=== PATIENT | male | born 1965 | race Caucasian/White ===

== ENCOUNTER 2016-12-08 00:52 | Inpatient (IN) | payer MEDICARE, MEDICAID ==
[~2016-12-08] VITALS: Ht 167.6 cm; Wt 79.3 kg
--- NOTE | ~2016-12-08 | WND ---
ADMIT: 12/08/2016 RM/LOC: 419 [facility] MR#: [id number] [address] [address] FARHEEN CHILDRESS [address] [place] [address] W[facility] Care Clinic SEX: M AGE: 51 : 1965 DATE OF VISIT: 12/17/2016 CHIEF COMPLAINT: Wound to right buttock. HISTORY OF PRESENT ILLNESS: Farheen is a 51-year-old, mentally-handicapped male patient, who is admitted through the emergency room on December 08, 2016 with acute abdominal pain. He was later diagnosed with acute pancreatitis and started on IV antibiotics. He has been running fevers while in the hospital. His caregiver is currently in the room, giving him a shower and after I evaluated the ulcer, she said, "see, told them it was worse than a stage I pressure ulcer." PAST MEDICAL HISTORY: 1. Chronic constipation. 2. Bipolar disorder. 3. Hypertriglyceridemia. 4. Mental disability. 5. Hyperlipidemia. 6. Type 2 diabetes. PAST SURGICAL HISTORY: Cholecystectomy in 2013. SOCIAL HISTORY: The patient lives with a make up worker. He is a client of [employer]. Denies tobacco or alcohol use. FAMILY HISTORY: Noncontributory. ALLERGIES: No known medication allergies. MEDICATIONS: 1. BuSpar. 2. Demadex. 3. Klor-Con. 4. MiraLAX. 5. Pepcid. 6. Peridex. 7. Reglan. 8. Senokot. 9. TriCor. 10.Wellbutrin. 11.Zocor. 12.DuoNeb. 13.Levemir. 14.NovoLog. 15.Lotrimin. 16.Merrem. 17.Nitroglycerin drip. 18.Clinimix. ADMIT: 12/08/2016 RM/LOC: 419 [facility] MR#: [id number] [address] [address] FARHEEN CHILDRESS[address] [place] [address] Wound Care Clinic SEX: M AGE: 51 : 1965 REVIEW OF SYSTEM: He currently denies pain, fever, or chills. He denies nausea or vomiting. PHYSICAL EXAMINATION: VITAL SIGNS: Temperature 98.9 degrees Fahrenheit, pulse 112, respirations 22, blood pressure 127/75, pulse ox 92% on room air. GENERAL: Assessment reveals an alert and oriented 51-year-old male, in no acute distress. EXTREMITIES: Assessment of his right ischial tuberosity reveals a dark purple area that is not quite quarter size that is indurated and tender to touch. There is no periwound erythema noted. No drainage is noted. ASSESSMENT: Deep tissue injury to right ischium. PLAN: We are going to encourage Farheen to lay in bed for 1 hour after each meal. He will have a low air loss mattress overlay on his bed. Also, I would like him to have an air cushion in his chair. They will apply skin prep to the area daily. Sonia Mo APRN/ letitia JOB #: [id number] CC: Ej Mccauley, Attending Physician Ej Mccauley, Family Physician
--- NOTE | ~2016-12-08 | WND ---
ADMIT: 12/08/2016 RM/LOC: 419 [facility] MR#: [id number] [address] [address] FARHEEN CHILDRESS [address] [place] [address] Wound Care Clinic SEX: M AGE: 51 : 1965 DATE OF VISIT: 12/19/2016 TIME: 15 minutes. SUBJECTIVE: Tyler is being seen today for followup on my evaluation on January 14, 2017 at which time, he was noted to have what appeared to be a deep tissue injury over his right buttock. Tyler is currently in room 419. He is sitting in his recliner. Tyler is a mentally-handicapped male who is being treated for acute pancreatitis. OBJECTIVE: Assessment of the right side of his buttock reveals an open area that is approximately 1 cm circumferential. Wound bed is pink. It is tender to palpation. It is actually along the medial gluteal cleft. He also has some moisture-associated dermatitis along the left gluteal cleft. He is tender to palpation. He does have an air cushion in his recliner and Sensi- Care over and around both of these open areas. ASSESSMENT: Stage II pressure ulcers to right and left side of gluteal cleft with moisture-associated dermatitis. PLAN: Again I talked to Tyler about being careful that he is not reclining in his recliner and that if he does only for short periods of time. Also if he is lying in bed, he needs to be repositioned to the right or left side. The pillow is needed to be above his waist line. They can discontinue the skin prep to his buttocks and continue with the Sensi-Care applied 4 times daily and as needed. WOCN will continue to follow. Sonia Mo APRN/ letitia JOB #: [id number] CC: Ej Mccauley MD, Attending Physician Ej Mccauley MD, Family Physician
--- NOTE | ~2016-12-08 | CO ---
ADMIT: 12/08/2016 RM/LOC: 419 [facility] MR#: [id number] [address] [address] FARHEEN CHILDRESS [address] [place] [address] Consultation Report SEX: M AGE: 51 : 1965 DATE OF CONSULTATION: 12/19/2016 ATTENDING PHYSICIAN: Ej Mccauley CONSULTING PHYSICIAN: Jamie Calix MD ADDENDUM: You can see full dictated consult. This is addendum to Fredrick Gay's. Farheen is a 51-year-old male with overall mental disabilities, who I believe stays at a home now with caregiver kind of full-time. He was admitted with acute pancreatitis, significant elevation of his enzymes, those have been improving. He has already had his gallbladder out. Started complaining of some more epigastric abdominal pain even though his enzymes were all getting better, and heme positive stool with drop in his hemoglobin, and secondary to that, we were asked to see him for possible EGD. He has already eaten today, so the plan would be to perform this tomorrow. Nothing else acute going on with his abdomen from that standpoint. Mild diffuse tenderness, but no acute peritoneal signs. The plan is to proceed with an EGD tomorrow, which I have discussed with him, which we had discussed with rehab tech what it entails, the risks, benefits, possible complications, and alternatives. Jamie Calix MD/ kristenl JOB #: [id number] CC: Ej Mccauley, Attending Physician Ej Mccauley, Family Physician
--- NOTE | ~2016-12-08 | ECH ---
Transthoracic Echocardiography Report (TTE) Demographics Patient Name FARHEEN CHILDRESS Date of Study 12/13/2016 Patient Number [id number] Visit Number [id number] Date of 1965 Room Number 419 Accession Number [id number] Gender Male Age 51 year(s) Referring Parisa Pagan MD [employer] Supervisor Alba Yoder [facility] Physician Physician Interpreting Evie [employer] Production Control Specialist Physician Supervising Ordering Physician Parisa Pagan MD, MD/MLP Nurse Stress Human Resources Department Supervisor Conclusions Contractility Score Summary Normal Left Ventricular contractility was noted. Summary Technically adequate exam. The estimated left ventricular ejection fraction is 65-70%. Hyperdynamic LV function. Mild concentric left ventricular hypertrophy. Diastolic assessment reveals Grade I diastolic dysfunction. Trivial pericardial effusion. Pleural effusion present. No significant valvular abnormalities. Procedure Type of Study TTE procedure Procedure Date Date: 12/13/2016 Start: 02:29 PM Technical Quality: Adequate visualization Indications:Diabetes and Hypertension. Additional Indications:Pericardial effusion on CT scan Appropriate Use Criteria: 8 Height: 66 inches Weight: 202 pounds BSA: 2.01 m Rhythm: Sinus tachycardia HR: 123 bpm BP: 129/79 mmHg M-Mode/2D Measurements LV Diastolic Dimension: 3.23 cm LV Systolic Dimension: 2.41 cm LV Septum Diastolic: 1.2 cm LV PW Diastolic: 1.16 cm AO Root Dimension: 2.67 cm Cardiac Output: 8.54 l/min LA Dimension: 3.45 cm Cardiac Index: 4.25 l/min*m RV Diastolic Dimension: 3.65 cm LA volume index: 25 ml/m LVOT: 1.86 cm LVOT VTI: 25.57 cm RV Base: 3.2 cm LV Stroke volume: 69.44 ml RV Mid: 2 cm LV Stroke volume index: 34.55 ml/m TAPSE: 2.8 cm TDI-S': 18 cm/s Doppler Measurements AV Peak Velocity: 1.7 m/s MV Peak E-Wave: 0.8 m/s AV Peak Gradient: 11.56 mmHg MV Peak A-Wave: 0.97 m/s AV Mean Gradient: 6.41 mmHg MV E/A Ratio: 0.82 LVOT Peak Velocity: 1.73 m/s MV P1/2t: 35 msec AV Area (Continuity):2.82 cm MV Deceleration Time: 120.8 msec TR Velocity:2.73 m/s MV Area (PHT): 6.28 cm TR Gradient:29.72 mmHg PV Peak Velocity: 1.52 m/s Estimated RAP:5 mmHg PV Peak Gradient: 9.29 mmHg Estimated RVSP: 35 mmHg Estimated PASP: 34.72 mmHg E' Septal Velocity: 0.1 m/s A' Septal Velocity: 0.13 m/s E' Lateral Velocity: 0.14 m/s A' Lateral Velocity: 0.16 m/s RA Area: 15.82 cm Findings Left Ventricle The left ventricle is normal in size . Mild concentric left ventricular hypertrophy. Diastolic assessment reveals Grade I diastolic dysfunction. Right Ventricle Normal right ventricle structure and function. Left Atrium Normal left atrial size. Right Atrium Normal right atrial size. Mitral Valve Normal mitral valve structure and function. Trivial mitral regurgitation by color Doppler. Aortic Valve Normal aortic valve structure and function. Tricuspid Valve Normal tricuspid valve structure and function. Trivial tricuspid regurgitation by color Doppler. Normal pulmonary pressures. Pulmonic Valve The pulmonic valve is not well visualized. Trivial pulmonic valve regurgitation by color Doppler. Pericardial Effusion No evidence of pericardial effusion. Miscellaneous Visualized portions of the aortic root and ascending aorta appear normal in size. Pleural Effusion Pleural effusion present. Contractility Score LV regional wall motion:(0-Non visualized 1-Normal 2-Hypokinesis 3-Akinesis 4-Dyskinesis 5-Aneurysm) Signature
[~2016-12-08 00:52] MED LIST: AUGMENTIN XR1 GM PO; BUSPAR DPS10 MG JT; COMBIVENT RESPIM4 GM IH; DEPAKOTE500 MG PO; DULCOLAX-DPS10 MG PR; DUONEB DPS3 ML IH; FANAPT12 MG JT; LOTRIMIN DPS15 GM TP; MAALOX DPS30 ML PO; MIRALAX17 GM PO; PERIDEX15 ML PO; PRILOSEC DPS20 MG PO; SENOKOT DPS8.6 MG PO; SURFAK DPS240 MG PO; TEMOVATE O.05%15 GM TP; TRICOR145 MG PO; TYLENOL DP650 MG/20. PO; TYLENOL DPS325 MG PO; WELLBUTRIN100 MG JT; ZESTRIL DPS20 MG PO; ZOCOR DPS40 MG PO
--- NOTE | 2016-12-08 04:49 | ER ---
ADMIT: 12/08/2016 RM/LOC: 419 [facility] MR#: [id number] [address] [address] FARHEEN CHILDRESS [address] [place] [address] Emergency Room Report SEX: M AGE: 51 : 1965 DATE: 12/08/2016 CHIEF COMPLAINT: Abdominal pain. HISTORY OF PRESENT ILLNESS: The patient is a 51-year-old [employer] client, complaining of 6-hour history of diffuse abdominal pain with vomiting. No fevers, chills, or diarrhea. Symptoms began shortly after having ice cream tonight. Denies prior history of difficulty with ice cream. Patient is status post cholecystectomy. PAST MEDICAL HISTORY: ALLERGIES: NONE. MEDICATIONS: Please see nurse's MAR. There are no anticoagulants on the MAR. ILLNESSES: Type 2 diabetes, diet controlled; hypertension; hyperlipidemia; bipolar disorder; constipation. OPERATIONS: Cholecystectomy. SOCIAL HISTORY: [employer] client. Nonsmoker, nondrinker, no illicit drugs. FAMILY HISTORY: Negative per chart review. REVIEW OF SYSTEMS: A 12-point review of systems negative for all other systems, illnesses, or operations except as outlined above. PHYSICAL EXAMINATION: VITAL SIGNS: Temp 96.6, pulse 94, respirations 20, BP 146/90, SaO2 of 97% on room air. GENERAL: Severe distress, nontoxic, non-diaphoretic without jaundice or icterus. HEENT: Normocephalic. No evidence of epistaxis, rhinorrhea, or otorrhea. NECK: Supple without lymphadenopathy or thyromegaly. CHEST: Clear. Breath sounds equal without rales, rhonchi, or wheeze. HEART: Regular rate and rhythm without murmur, gallop, or edema. ABDOMEN: Obese, diffusely tender without mass or megaly. Bowel sounds absent. BACK: No CVA tenderness. EXTREMITIES: No evidence of Homans sign, synovitis, or dermatitis. NEURO: EOMI. PERRLA. No evidence of drift, dysarthria, or ataxia. Gait not evaluated. MENTAL STATUS: Obvious static encephalopathy with cognitive delay, cooperative with exam. MEDICAL DECISION MAKING: The patient has an acute abdomen. CT abdomen shows fluid around the pancreas. No evidence of dilated bile ducts. Evidence of cholecystectomy. WBC 11.1, hemoglobin 13.8, lactic 3.0, potassium 3.6, glucose 206, CRP less than 0.29. Valproic acid 1358, lipase 43,398. INR ADMIT: 12/08/2016 RM/LOC: 419 [facility] MR#: [id number] [address] [address] FARHEEN CHILDRESS [address] [place] [address] Emergency Room Report SEX: M AGE: 51 : 1965 2.24, ALT 105, AST 178. Normal alkaline phosphatase and bilirubin. Serum ammonia level pending. EKG pending. Patient was given IV fluids, Zofran, Toradol, Dilaudid with marked improvement of pain. Discussed case with Dr. Euceda, who agreed and gave orders to nursing staff. Notified Poison Control, who instructed EKG and serum ammonia. The patient will have an INR repeated later tonight. Due to the patient's presentation, findings, and intervention, 30 minutes of critical care is warranted. DIAGNOSES: 1. Acute pancreatitis. 2. Elevated INR. 3. Lactic acidosis. 4. Valproic acid toxicity. RECOMMENDATION: Admit PCU for Dr. Mccauley. ADMISSION/DISCHARGE CONDITION: Fair. The patient is a full code. Jamey Bledsoe MD/ letitia JOB #: [id number] CC: Ej Mccauley MD, Attending Physician Ej Mccauley MD, Family Physician Ej Mccauley MD
--- NOTE | 2016-12-19 15:02 | CO ---
ADMIT: 12/08/2016 RM/LOC: 419 [facility] MR#: [id number] [address] [address] FARHEEN CHILDRESS [address] [place] [address] Consultation SEX: M AGE: 51 : 1965 DATE OF CONSULTATION: 12/15/2016 ATTENDING PHYSICIAN: Ej Mccauley CONSULTING PHYSICIAN: Carlos Case MD REASON FOR CONSULT: Pericardial fluid and possible pericarditis. HISTORY OF PRESENT ILLNESS: Farheen is a 51-year-old with mental disability and lives with a program/music director for full-time. He was previously at [facility]. He does not have a prior cardiac history. His medical history is positive for dyslipidemia, chronic constipation, bipolar disorder, and diabetes. He was admitted on December 08 with diffuse abdominal pain, nausea, and vomiting. This occurred after he had eaten. He was found to have acute pancreatitis with a lipase greater than 40,000. There was associated liver enzyme elevation, and his INR was supratherapeutic, not on any anticoagulation. There was question of increased Depakote level and whether this could have been the cause of his pancreatitis. Throughout this hospitalization, he has slowly been improving. He has complained of some heartburn but no anginal symptoms and no positional chest pain. A CAT scan of the chest was performed and showed a small amount of pericardial fluid. We did an echo which shows a trivial pericardial effusion but overall preserved ejection fraction. His LV was hyperdynamic and no significant valvular abnormalities. He also has associated pleural effusions. He continues to be febrile. PAST MEDICAL HISTORY: ALLERGIES: THERE ARE NO KNOWN MEDICAL ALLERGIES. MEDICATIONS: His home medications include: 1. Simvastatin 40 at bedtime. 2. Senna b.i.d. 3. Potassium 20 mEq daily. 4. Polyethylene glycol t.i.d. 5. Omeprazole 20 daily. 6. Lasix 40 daily. 7. Fenofibrate 145 daily. 8. Fanapt 10 mg daily. 9. Divalproex DR 500 b.i.d. 10.BuSpar 10 q.i.d. 11.Chlorhexidine swish and spit. 12.Bupropion 150 b.i.d. He is currently on low-dose Demadex as well in the hospital. ILLNESSES: Include his bipolar disorder, mental disability. He is independent, but he lives in a home with a primary caregiver. He is type 2 ADMIT: 12/08/2016 RM/LOC: 419 [facility] MR#: [id number] [address] [address] FARHEEN CHILDRESS [address] [place] [address] Consultation SEX: M AGE: 51 : 1965 diabetic. He has severe dyslipidemia with primary hypertriglyceridemia. He has chronic constipation. He is status post cholecystectomy a couple of years ago. SOCIAL HISTORY: He is a nonsmoker. He used to be with [facility], but he is currently with an independent caregiver. No smoking or alcohol abuse. FAMILY HISTORY: Unobtainable. REVIEW OF SYSTEMS: Unobtainable. He does not answer specific questions. PHYSICAL EXAMINATION: VITAL SIGNS: His blood pressure is 150/96, his pulse is 110, respirations 20. He remains afebrile at 101.4. SKIN: Pale, pink, warm and dry. EYES: Sclerae clear. No xanthelasmas. ENT: Marked carotid upstroke but no specific JVD. Oral mucosa is pink and moist. CHEST: Diminished in the bases bilaterally. Lungs are clear to auscultation. HEART: Mildly tachycardic. No rubs are noted. No murmurs, rubs or gallops. ABDOMEN: Protuberant and obese. It is not tense, soft and mildly tender to palpation. Bowel sounds are active. MUSCULOSKELETAL: Gait is normal. EXTREMITIES: Mild edema. Hair loss over the lower extremities. PSYCH: He does give an eye contact. He will answer very simple questions but offers no other information. He is in no acute distress. IMAGING DATA: His echo showed hyperdynamic function with trivial pericardial effusion. LABORATORY DATA: Potassium 4.2, creatinine 0.7, triglycerides are 110 with a total cholesterol of 110. His AST on admission was 178 but now is down to 52. Amylase on admission was over 700. It is down to 83. Troponins have been negative. ProBNP is normal. His INR was elevated but has now normalized down to 1.38. Hemoglobin is 9.6. EKG shows sinus rhythm with no Q-waves, and there is no significant ST elevation. IMPRESSION: 1. Trivial pericardial effusion. 2. Acute pancreatitis. 3. Type 2 diabetes. 4. Mental disability. 5. History of dyslipidemia. ADMIT: 12/08/2016 RM/LOC: 419 [facility] MR#: [id number] [id number] [place], [place] [address] [place] [address] Consultation SEX: M AGE: 51 : 1965 6. Bipolar disorder. RECOMMENDATIONS: I reviewed his echo. He has hyperdynamic LV function which is probably part of his underlying illness and compensatory. He did have just a trivial amount of fluid but no tamponade-type physiology, and he is not hypotensive. His EKG does not show evidence of acute pericarditis. I think the small amount of pericardial fluid is due to the underlying inflammatory process and I would not give him a diagnosis of pericarditis or need to treat pericarditis specifically. The ultimate treatment will be the treatment of his underlying illness. Thank you for this consultation. Carlos Case MD/ letitia JOB #: [id number] CC: Ej Mccauley, Attending Physician Ej Mccauley, Family Physician
--- NOTE | 2016-12-23 10:31 | CO ---
ADMIT: 12/08/2016 RM/LOC: 419 [facility] MR#: [id number] [address] [address] FARHEEN CHILDRESS [address] [place] [address] Consultation SEX: M AGE: 51 : 1965 DATE OF CONSULTATION: 12/16/2016 ATTENDING PHYSICIAN: Ej Mccauley CONSULTING PHYSICIAN: Bing Rivera MD REASON FOR CONSULT: Acute pancreatitis and fevers. Thank you, Dr. Vitale, for the consult and involving in this patient's care. HISTORY OF PRESENT ILLNESS: Mr. Childress is a 51-year-old man with history of mental disability, who lives at [facility], was brought in by his banking assistant with complain of increased abdominal pain and nausea and vomiting. Apparently, the patient ate some ice cream and then complained of severe abdominal pain. In the ER, he was noted to have elevated lipase of 5405, and amylase of 711, and increased AST of 50. His INR was elevated at 1.38, and CT scan showed peripancreatic fluid and inflammatory change. He was also noted to have elevated Depakote level, but the repeat one from the same day was less than 3, so likely a lab error. His admission lipase was 46,398. He was started on levofloxacin and Zosyn, and he has been running fevers almost everyday. At present, he complains of epigastric pain and has been eating and tolerating diet well. He also has history of chronic constipation and his last bowel movement was yesterday. PAST MEDICAL HISTORY: 1. Bipolar disorder. 2. Mental disability. 3. Hyperlipidemia. 4. Chronic constipation. PAST SURGICAL HISTORY: Cholecystectomy in 2013. SOCIAL HISTORY: The patient lives at home with a banking assistant in [facility]. Denies any smoking, alcohol, or recreational drug use. FAMILY HISTORY: Significant for diabetes mellitus in his mother. ALLERGIES: NO KNOWN DRUG ALLERGIES. CURRENT MEDICATIONS: 1. BuSpar. 2. Demadex. 3. Klor-Con. 4. MiraLax. 5. Pepcid. 6. Peridex. 7. Reglan. 8. Fanapt. 9. Senokot. ADMIT: 12/08/2016 RM/LOC: 419 [facility] MR#: [id number] [address] [address] [place] [address] Consultation SEX: M AGE: 51 : 1965 10.TriCor. 11.Zocor. 12.Insulin sliding scale. 13.Lotrimin. 14.Levofloxacin 500 mg once daily. 15.Clinimix. 16.Solu-Medrol 80 mg twice daily. 17.Zosyn 3.375 g every 8 hours. REVIEW OF SYSTEMS: A 10-point review of systems negative except as mentioned in HPI. PHYSICAL EXAMINATION: VITAL SIGNS: Current temperature is 98.2, T-max was 101.4, heart rate 108, respirations 24, blood pressure 168/92, and 98% on room air. GENERAL: No acute distress. HEENT: Head is normocephalic and atraumatic. Extraocular movements intact. CHEST: Clear to auscultation bilaterally. Decreased breath sounds at bases. CARDIOVASCULAR: S1 and S2 heard. Regular rate and rhythm. ABDOMEN: Soft, obese, mildly distended, and nontender. EXTREMITIES: No peripheral edema. PSYCH: Flat affect. LABORATORY DATA: Reviewed. His repeat CT scan from today showed increasing peripancreatic inflammatory change and adjacent abdominal ascites and increased bilateral pleural effusions. CBC yesterday showed white count of 12.6, hemoglobin 9.6, ESR of 108. BMP showed glucose is 262, creatinine 0.7. ASSESSMENT AND PLAN: 1. Acute pancreatitis, increased peripancreatic fluid and inflammation in today's CAT scan. I will stop his levofloxacin and Zosyn, and change the ADMIT: 12/08/2016 RM/LOC: 419 [facility] MR#: [id number] [address] [address] FARHEEN CHILDRESS [address] [place] [address] Consultation SEX: M AGE: 51 : 1965 antibiotic to meropenem 1 g every 8 hours as it has better pancreatic penetration. There is no evidence of necrosis yet. However, given his fevers, I would start him on meropenem for now. We will repeat an MRI with pancreatic protocol in next few days. No pseudocyst formation as of now. Blood cultures were sent yesterday which are no growth to date. 2. Chronic constipation. 3. Mental disability. 4. Bipolar disorder. 5. Questionable pericarditis. He was seen by Cardiology and there is no evidence of any pericarditis, trivial pericardial effusion on echo. I will stop the Solu-Medrol if okay with Dr. Vitale. Thank you for the consult and I will continue to follow the patient. Bing Rivera MD/ letitia JOB #: [id number] CC: Ej Mccauley, Attending Physician Ej Mccauley, Family Physician
--- NOTE | 2016-12-24 19:07 | OR ---
ADMIT: 12/08/2016 RM/LOC: 419 [facility] MR#: [id number] [address] [address] [facility] [address] [place] [address] Operative/Delivery Room Report SEX: M AGE: 51 : 1965 SURGERY DATE: 12/20/2016 SURGEON: Dallas Liu MD PREPROCEDURE DIAGNOSIS: Anemia. POSTPROCEDURE DIAGNOSES: 1. Severe erosive esophagitis, likely caustic injury. 2. Small type 1 sliding hiatal hernia. 3. Duodenitis. PROCEDURE: EGD with esophageal biopsies. INDICATIONS: The patient is a 51-year-old mentally challenged male previously evaluated by Dr. Calix for anemia. I was asked to see for EGD evaluation. FINDINGS: The patient was taken to the endoscopy suite. IV sedation was given. He was placed in left lateral decubitus position. A bite-block was placed in the patient's mouth. The gastroscope was introduced down the oropharynx, down the esophagus, where immediately there was a very friable, erosive, circumferentially injured esophagus involving the distal 2/3rd of the esophagus. We were able to place a gastroscope through this very easily, was not strictured. We placed into the stomach where there was really no inflammation in the stomach. There were many benign, gastric, fundic and body polyps. We placed the gastroscope through the pylorus into the duodenum which showed changes of duodenitis but no discrete ulcer. There was no pyloric channel narrowing. Multiple pictures were taken. On retroflexion view, we again identified about 2-3 cm type 1 sliding hiatal hernia. Upon coming back into the esophagus, clearly the cause of the anemia and there was severe injury and inflammation. I did do several esophageal biopsies. The upper 3rd of the esophagus appeared normal. The gastroscope was removed. The patient tolerated the procedure without difficulty and transferred to the recovery room in good condition. Dallas Liu MD/ letitia JOB #: [id number] CC: Ej Mccauley, Attending Physician Ej Mccauley, Family Physician
--- NOTE | 2016-12-26 06:27 | CO ---
ADMIT: 12/08/2016 RM/LOC: 419 [facility] MR#: [id number] [address] [address] FARHEEN CHILDRESS [address] [place] [address] Consultation SEX: M AGE: 51 : 1965 DATE OF CONSULTATION: 12/19/2016 ATTENDING PHYSICIAN: Ej Mccauley CONSULTING PHYSICIAN: Jamie Calix MD REASON FOR CONSULTATION: Concern for upper GI bleed, anemia. HISTORY OF PRESENT ILLNESS: Farheen is a very pleasant, 51-year-old male with some mental disability, who lives at home with his caregiver, sponsored by [employer], who presents to the hospital for acute pancreatitis. Apparently, the patient was at home, had sudden onset of abdominal pain and was seen in the ER, which at this time, his pancreatic enzymes were elevated. Since then, they have been trending down appropriately; however, the patient has still been running a fever despite being on [place] and had again sudden onset of abdominal pain yesterday. At this time, he got very nauseous and had one times emesis, that was coffee-ground in nature. He has also had 2 episodes of dark tarry stools as well. Currently, the caregiver to which I receive most of the history from states that he has not had any hematemesis, bright red blood per rectum, diarrhea, or constipation. His abdominal pain is diffuse throughout his abdomen. PAST MEDICAL HISTORY: Significant for mental disability, chronic constipation, bipolar disorder, hypertriglyceridemia, hyperlipidemia, type 2 diabetes. PAST SURGICAL HISTORY: Cholecystectomy in 2013. ALLERGIES: NO KNOWN DRUG ALLERGIES. MEDICATIONS: Well documented in chart. FAMILY HISTORY: Noncontributory. SOCIAL HISTORY: The patient drinks an occasional nonalcoholic beer but denies any tobacco or illicit drug use. REVIEW OF SYSTEMS: CONSTITUTIONAL: The patient denies any fever, chills, or night sweats. The rest of comprehensive 10-point review of systems was performed and all other systems are negative. PHYSICAL EXAMINATION: GENERAL: The patient is in no acute distress. He it is alert and oriented but pretty drowsy. HEENT: Head is normocephalic and atraumatic. EOMs are intact. Conjunctivae free of icterus, erythema, pallor. Pinnae free of deformities. Nose is midline. No tracheal deviation. NECK: Supple. SKIN: Negative for jaundice, clubbing, edema, pallor, or cyanosis. Lungs normal respiratory effort. Heart distal pulses intact. Regular rate and ADMIT: 12/08/2016 RM/LOC: 419 [facility] MR#: [id number] [address] [address] [place] [address] Consultation SEX: M AGE: 51 : 1965 rhythm. ABDOMEN: Mildly distended, rotund, and tender diffuse. NEURO: Grossly intact. LABORATORY DATA: Hemoglobin is 8.3, trending down. ASSESSMENT: 1. Anemia. 2. Upper gastrointestinal bleed. PLAN: The plan is to have the patient undergo EGD tomorrow performed by Dr. Calix. I discussed risks, alternatives, benefits, and complications of endoscopy with caregiver to which she has agreement of this plan. I had all their questions answered, and would like to proceed. She has been signing the consents thus far. I will get him on the schedule and prep for this procedure tomorrow. Thank you for the consultation of this patient. HERMAN Prajapati / Jamie Calix MD / letitia JOB #: [id number] CC: Ej Mccauley, Attending Physician Ej Mccauley, Family Physician
[2016-12-29] MEDS ORDERED: LASIX DPS40 MG PO (12:07)
[2016-12-29] MEDS ORDERED: KCL IV (12:07)
[2016-12-29] MEDS ORDERED: PEPCID DPS20 MG PO (12:08)
[2016-12-29] MEDS ORDERED: CARAFATE D1 GM/10 ML PO (12:08)
[2016-12-29] MEDS ORDERED: LEVEMIR100 UNIT/1 SQ (12:09)
[2016-12-29] MEDS ORDERED: NOVOLOG100 UNIT/2 SQ (12:10)
[2016-12-29] MEDS ORDERED: BACITRACIN15 G1 TP (12:11)
[2016-12-29] MEDS ORDERED: GLUCOPHAGE-DPS500 MG PO (12:11)
[2017-01-10] MEDS ORDERED: GLUTOSE 1537.5 GM PO (13:46)
[2017-01-10] MEDS ORDERED: ONDANSETRON JT (13:47)
[2017-01-10] MEDS ORDERED: GLUCAGON HCL1 MG IM (13:47)
[2017-01-10] MEDS ORDERED: DULCOLAX-DPS10 MG PR (13:47)
[2017-01-10] MEDS ORDERED: OMEPRAZOLE20 MG JT (13:48)
[2017-01-10] MEDS ORDERED: MERREM500 MG IV (13:49)
--- NOTE | 2017-01-19 09:13 | HP ---
ADMIT: 12/08/2016 RM/LOC: 419 [facility] MR#: [id number] [address] [address] FARHEEN CHILDRESS [address] [place] [address] History and Physical SEX: M AGE: 51 : 1965 DATE OF SERVICE: HISTORY OF PRESENT ILLNESS: The patient is a 51-year-old male with a history of mental disability, who lives at [facility], who was brought in by his armed guard, complaining of 6 hours of diffuse abdominal pain with nausea and vomiting. This was acutely onset this evening after eating some ice cream. There is no evidence of aspiration. The patient has never had any problem eating ice cream before. His armed guard says that he was in pretty significant distress and abdominal pain, so she brought him into the emergency room. Workup in the emergency room reveals lipase greater than 40,000, some elevated liver enzymes and INR of 2.24, even though he is not on any anticoagulation and Depakote level of 1358. CT scan showed peripancreatic fluid and inflammation and pancreatic stranding. He will be admitted to PCU status for his acute pancreatitis, Depakote toxicity, hepatotoxicity, elevated ammonia levels, supratherapeutic INR, and urinary tract infection. Per chart review, it looks like the patient was admitted for pancreatitis and acute kidney infection about one year ago. PAST MEDICAL HISTORY: Chronic constipation, bipolar disorder, hypertriglyceridemia, mental disability, hyperlipidemia, type 2 diabetes. PAST SURGICAL HISTORY: Cholecystectomy in 2013. SOCIAL HISTORY: The patient lives with a armed guard, is client of [employer]. No smoking or alcohol use. FAMILY HISTORY: Noncontributory. MEDICATIONS: Per the chart. ALLERGIES: NO KNOWN MEDICAL ALLERGIES. REVIEW OF SYSTEMS: HEENT: No upper respiratory or cold symptoms. No sore throat or runny nose. CARDIAC: No chest pain or shortness of breath. No palpitations. LUNGS: No cough, wheezing, or difficulty breathing. GASTROINTESTINAL: No nausea, vomiting, and abdominal pain. Chronic constipation. : No problems with urination. No dysuria. PHYSICAL EXAMINATION: VITAL SIGNS: Temp 98.6, heart rate 125, respirations 24, blood pressure 129/66, O2 saturation 93% on room air. GENERAL: The patient is somnolent, sleepy, however, does wake to voice. HEENT: Normocephalic and atraumatic. PERRLA. EOMI. Mucous membranes are moist. No evidence of JVD. CARDIOVASCULAR: Tachycardic. No murmurs noted. Regular rhythm. PULMONARY: Clear to auscultation bilaterally. ABDOMEN: Distended and tympanic. He has normoactive bowel sounds. He is tender in the epigastric area. EXTREMITIES: Show no clubbing, cyanosis, or edema. ADMIT: 12/08/2016 RM/LOC: 419 [facility] MR#: [id number] [address] [place] [id number] [place] [address] History and Physical SEX: M AGE: 51 : 1965 LABS AND IMAGING: White count 11.1, hemoglobin 13.8, platelets are 208. Lactic acid is elevated at 3.0. PT and PTT are elevated, INR is 2.24. Sodium 141, potassium 3.6, chloride 107, CO2 of 22, BUN 22, glucose is 206, creatinine 1.3. Calcium 8.8. AST is elevated at 178, ALT is elevated at 105. Lipase is elevated at 46,398. Troponins are normal. Depakote level 1358, with normal ranging from 50-100. UA shows 3+ leuk esterase, white blood cell clumps. Urine culture is pending. Ammonia is elevated at 50. ASSESSMENT AND PLAN: 1. Acute pancreatitis, keep the patient n.p.o. except for ice chips. Resuscitate him with IV fluids. Control his pain and nausea and continue to follow along with his labs. We will advance him to a soft diet as tolerated. 2. Depakote toxicity with hepatotoxicity and increased ammonia levels. Poison control was contacted and recommended. We follow ammonia levels and EKG. Ammonia levels were elevated, given hepatotoxicity, it is recommend to be started on L-Carnitine, looks like 100 mcg per kg for 30 minutes and then 15 mcg per kg IV q.4 hours. Appreciate pharmacy help in dosing this medication. I will also get a right upper quadrant ultrasound with the indication of pancreatitis, status post cholecystectomy and elevated LFTs. We will follow his Depakote level, CMP, lipase, and ammonia levels q.6 hours. 3. Supratherapeutic INR, not on any anticoagulation. This could be related to his hepatotoxicity. We will continue to follow these levels. 4. Urinary tract infection. We will start IV Rocephin. Jay Euceda MD Resident / Ej Mccauley MD / modl JOB #: [id number] CC: Ej Mccauley, Attending Physician Ej Mccualey, Family Physician
--- NOTE | 2017-02-06 19:48 | DS ---
ADMIT: 12/08/2016 RM/LOC: 419 [facility] MR#: [id number] [address] [address] [facility] [address] [place] [address] Discharge Summary SEX: M AGE: 51 : 1965 ADMISSION DATE: 12/08/2016 DISCHARGE DATE: 12/27/2016 DISCHARGE DIAGNOSES: 1. Pancreatitis, resolved. 2. Ascites secondary to pancreatitis. 3. Pleural effusion secondary to pancreatitis. 4. Malnutrition. 5. Chronic constipation. 6. Acute blood loss anemia secondary to GI (gastrointestinal) bleed. 7. Erosive esophagitis, likely due to caustic ingestion. 8. Type 2 diabetes. 9. Mental disability. CONSULTATIONS: 1. Cardiology, Dr. Carlos Case. 2. Infectious Disease, Dr. Rivera. 3. Surgery, Dr. Jamie Calix. PROCEDURES: EGD on 12/20/[address] Dallas Liu. BRIEF HISTORY OF PRESENT ILLNESS: The patient is a 51-year-old male with a history of mental disability who lives at [facility] and at home with a bone worker, who was brought in the emergency room after complaining of 6 hours of diffuse abdominal pain with nausea and vomiting. Workup in the ER revealed a lipase of 40,000, elevated liver enzymes, elevated INR and Depakote level of 1358. CT of the abdomen showed some peripancreatic fluid, inflammation and pancreatic stranding, so he was admitted PCU status for his acute pancreatitis, Depakote toxicity and supratherapeutic INR as well as incidental urinary tract infection. HOSPITAL COURSE: The patient was admitted to PCU, started on ceftriaxone for his urinary tract infection. Lipase was trended, valproic acid was repeated and was found to be in the normal therapeutic range so the first Depakote level that was greatly elevated must have been a lab error. The patient was kept n.p.o. and resuscitated with IV fluids. On hospital day three, labs started to stabilize, lipase trended down into normal range and the patient was advanced to clear liquids. Rocephin was stopped and at that point, patient appeared close to discharge. However on the the patient spiked a fever and was complaining of worsening abdominal pain and was not taking appropriate p.o. He was started on Zosyn and Levaquin for suspected respiratory process and echo was obtained. Echo showed some trace pericardial fluid. Cardiology was consulted for this. They believed that this was trace to trivial amount of pericardial fluid, was not causing any hemodynamic instability and was due to his underlying pancreatitis and other illness. They did not recommend any additional cardiac intervention, instead focused on the underlying cause of his illness and suspected that the pericardial fluid would resolve spontaneously. The patient remained febrile, but there was no apparent etiology for this. Fevers persisted and so on 12/16, Dr. Rivera, ADMIT: 12/08/2016 RM/LOC: 419 [facility] MR#: [id number] [address] [place] [id number] [place] [address] Discharge Summary SEX: M AGE: 51 : 1965 with Infectious Disease was consulted. She recommended changing antibiotics from Levaquin and Zosyn to Merrem and thought that the fever and symptoms were still due to the patient's acute pancreatitis even though enzymes had trended back into the normal range. He was started on Merrem daily. Blood sugars were regulated with insulin sliding scale. Repeat CT of the abdomen and pelvis was obtained, which showed small bilateral pleural effusions, small pericardial effusion, diffuse ascites secondary to patient's pancreatitis and an apparent fecal impaction in the distal sigmoid colon, but no acute worsening of patient's pancreatitis. Fevers started to resolve, but source of acute pancreatitis was still under investigation. Merrem was continued per Infectious Disease. They recommended an MRI to further evaluate pancreas in a few days after symptoms continued to improve. However on 12/17, the patient triggered positive for sepsis and though he was already on appropriate antibiotics was transferred to PCU status. He again spiked a fever to 102. MRI of the pancreas was attempted but patient was unable to cooperate with the MRI scan. On 12/19, it was noted that the patient was having coffee-ground emesis and dark tarry stools suspicious for an upper GI bleed. Hemoglobin was trending down so surgery was consulted for this. They kept the patient n.p.o., and did an EGD on 12/20, which revealed severe erosive esophagitis likely due to a caustic injury. Biopsies at that time did not show any malignancy. He was put on a PPI, continued on IV fluids and his antibiotics. Since the patient was not taking enough p.o. he was started on TPN. Over the next few days, the patient defervesced although his hemoglobin did drop to 7.7, he was given 2 units of packed cells and hemoglobin responded appropriately. PT, OT and speech therapy saw the patient. He began to take p.o. a little more regularly without too much discomfort. P.o. medicines were resumed on December 25, IV Merrem was discontinued and the patient was deescalated to med/surg status. He continued to improve, diet was advanced as tolerated and on 12/27 the patient was discharged home with bone worker with close followup. Discharge medications, continued home medications per the chart. In addition, the patient was started on Glucerna one can b.i.d. FOLLOWUP: The patient was to follow up with Dr. Mccauley next week and Dr. Nicole pete. Diet was soft diabetic diet. The patient was to have CBC and CMP before his office visit with Dr. Mccauley. The patient was discharged in good stable condition. Jay Euceda MD Resident / Ej Mccauley MD / candaceg JOB #: [id number] CC: Ej Mccauley MD, Attending Physician Ej Mccauley MD, Family Physician
[2017-02-13] MEDS ORDERED: MAG-OX400 MG JT (14:12)
[2017-02-13] MEDS ORDERED: VIOKACE 10,4401 EACH GT (14:13)
[2017-02-13] MEDS ORDERED: LOPRESSOR DPS12.5 MG JT (14:18)
[2017-02-13] MEDS ORDERED: AMOX TR-K400 MG/5 M JT (14:18)
[2017-02-13] MEDS ORDERED: HUMULIN N100 UNIT/1 SQ (14:18)
[2017-03-15] MEDS ORDERED: BACITRACIN15 G1 TP (18:39)
[2017-03-15] MEDS ORDERED: LOVENOX DP40 MG/0.4 SQ (18:39)
[2017-03-15] MEDS ORDERED: POTASSIUM20 MEQ/15 JT (18:40)
[2017-03-15] MEDS ORDERED: DOCU LIQUI50 MG/5 ML JT (18:45)
[2017-03-15] MEDS ORDERED: TYLENOL DP650 MG/20. JT (18:45)
== END 2016-12-27 16:34 | disposition home or self-care (01) | DRG 871 ==
LOC: ER 00:52 → 4PCU 02:34
PROVIDERS: ADMIT Family Medicine
PROC: 3E0336Z Introduction of Nutritional Substance into Peripheral Vein, Percutaneous Approach (ICD-10-PCS; principal; 2016-12-20)
PROC: 0DB38ZX Excision of Lower Esophagus, Via Natural or Artificial Opening Endoscopic, Diagnostic (ICD-10-PCS; principal; 2016-12-20)
PROC: 02HV33Z Insertion of Infusion Device into Superior Vena Cava, Percutaneous Approach (ICD-10-PCS; principal; 2016-12-20)
PROC: 30233N1 Transfusion of Nonautologous Red Blood Cells into Peripheral Vein, Percutaneous Approach (ICD-10-PCS; principal; 2016-12-20)
DX: A41.9 Sepsis, unspecified organism (principal); K85.90 Acute pancreatitis without necrosis or infection, unspecified; E87.2 Acidosis; L89.312 Pressure ulcer of right buttock, stage 2; R18.8 Other ascites; D62 Acute posthemorrhagic anemia; K56.7 Ileus, unspecified; N39.0 Urinary tract infection, site not specified; L30.8 Other specified dermatitis; K20.8 Other esophagitis; K22.8 Other specified diseases of esophagus; E11.9 Type 2 diabetes mellitus without complications; I10 Essential (primary) hypertension; K29.80 Duodenitis without bleeding; K44.9 Diaphragmatic hernia without obstruction or gangrene; R40.0 Somnolence; T42.6X5A Adverse effect of other antiepileptic and sedative-hypnotic drugs, initial encounter; F79 Unspecified intellectual disabilities; E78.5 Hyperlipidemia, unspecified; K59.00 Constipation, unspecified; F31.9 Bipolar disorder, unspecified; R79.1 Abnormal coagulation profile; E78.1 Pure hyperglyceridemia; Z79.84 Long term (current) use of oral hypoglycemic drugs

== ENCOUNTER 2017-01-07 12:10 | Inpatient (IN) | payer MEDICARE, MEDICAID ==
[~2017-01-07] VITALS: Ht 160 cm; Wt 72.2 kg
[~2017-01-07 12:10] MED LIST changes: +BACITRACIN15 G1 TP; +CARAFATE D1 GM/10 ML PO; +GLUCOPHAGE-DPS500 MG PO; +KCL IV; +LASIX DPS40 MG PO; +LEVEMIR100 UNIT/1 SQ; +NOVOLOG100 UNIT/2 SQ; +PEPCID DPS20 MG PO
--- NOTE | 2017-01-07 19:05 | HP ---
ADMIT: 01/07/2017 RM/LOC: 314 [facility] MR#: [id number] [address] [address] FARHEEN CHILDRESS [address] [place] [address] History and Physical SEX: M AGE: 51 : 1965 DATE OF SERVICE: CHIEF COMPLAINT: Weakness, fever, and vomiting. HISTORY OF PRESENT ILLNESS: This is a 51-year-old, who has had a recent hospital stay in late November for 19 days for pancreatitis, recurrent fevers, and also was diagnosed with a large esophageal ulcer. He has intellectual disabilities and is not a very good historian. He lives with a woman who helps care for him and he gets care through [employer] as well. His caregiver reports that since his last appointment here in our office on January 03, he has not wanted to eat and drink very well. He got quite a bit worse on 01/05, refusing to drink and then he vomited on 01/06 in the morning. On the afternoon of 01/06 he spiked a fever to 102.5. He had emesis again late last night and then early this morning. This morning, he said he felt thirsty and took a few sips and then did not want to drink anymore. He did not eat anything. At 9:30 a.m., his blood sugar was 155 and she gave him his usual 3 units of NovoLog, but he has not taken any other medicines this morning. The patient is a fairly difficult historian and most of the history is taken from his caregiver, Danny Guzmán. She accompanies him and then a nurse with [employer] came to the appointment as well. Because this gentleman had hypotension, tachycardia, and has not been able to keep liquids down, I elected to admit him to the intensive care unit. PAST MEDICAL HISTORY: Well outlined in recent history and physical from November of 2016. He has chronic constipation, diabetes type 2 which is uncomplicated and he uses insulin. He also has hyperlipidemia and moderately severe intellectual disabilities. He is not able to do higher intellectual functioning but he is able to do his ADLs. He also has esophageal ulcer that was recently diagnosed in November of 2016. He has gallstone pancreatitis, bipolar disorder. PAST SURGICAL HISTORY: Includes the recent EGD in November 2016 and also past history of cholecystectomy. FAMILY HISTORY: Unobtainable. SOCIAL HISTORY: He lives at [facility] in an individual home with a caregiver. He does not smoke, does not drink alcohol. Typically he can be up and around ambulating on his own, but in the recent weeks, he has been more lethargic and not wanting to do anything. ALLERGIES: NONE KNOWN. MEDICATIONS: 1. Bupropion ER 150 mg q.12 hours. 2. BuSpar 10 mg q.i.d. 3. Famotidine 20 mg b.i.d. ADMIT: 01/07/2017 RM/LOC: 314 [facility] MR#: [id number] [address] [address] [place] [address] History and Physical SEX: M AGE: 51 : 1965 4. Fanapt 10 mg daily. 5. Furosemide 40 mg daily. 6. Glucophage 500 mg b.i.d. 7. Levemir 10 units at bedtime. 8. NovoLog 3 units before meals. 9. Omeprazole 20 mg b.i.d. 10.MiraLax 17 g t.i.d. with water. 11.Potassium chloride 20 mEq t.i.d. 12.Senna tablet b.i.d. 13.Carafate 1 g q.i.d. 14.He also has p.r.n. Zofran and Tylenol. 15.Most recently, he was started on [place] Instant Breakfast to drink 2 or 3 per day, but he has not been taking those very well. REVIEW OF SYSTEMS: Taken mostly from the caregiver. She reported fevers in the last 24 hours. Also reports poor oral intake. He does not complain of pain. CARDIOPULMONARY: Benign. She has not seen him coughing and he does not appear short of breath. GI: She is not sure when he had his last bowel movement, but thought it was a little over 24 hours ago. He has not had any diarrhea. : She is also not certain if he has decreased urine output. He himself could not tell me. MUSCULOSKELETAL: He has been weaker, does not get up and walk very easily. NEUROPSYCHIATRIC: He is less interactive and little bit more agitated than usual. PHYSICAL EXAMINATION: VITAL SIGNS: Blood pressure was 88/52 and on recheck I got 84/60. Pulse in the 120s to 130s and regular. GENERAL: He is alert, pale, diaphoretic. LUNGS: Clear. He did take a deep breath for me. GI: Belly is protuberant. Bowel sounds are rare, mainly heard in the right lower quadrant. EXTREMITIES: Cool. Little bit clammy. Pulses are palpable at the radius. He has a trace to 1+ ankle edema. LABORATORY DATA: White cell count is 13.8, platelets 391, and hemoglobin is 11.7, which appear stable. His CMP revealed potassium of 4.2, glucose was 157, his BUN is 27, and creatinine 1.37. Baseline creatinine typically runs around 0.9 to 1.0. Albumin is low at 2.8. Liver function studies were all normal. A manual differential of his white count today revealed 24% bands, 2% atypical lymphocytes, 50% segs, and 19% lymphs. ASSESSMENT: 1. Acute dehydration with acute renal failure. 2. Recurrent fever of uncertain origin. 3. History of pancreatitis. 4. Known esophageal ulcer. 5. Diabetes type 2. 6. Bipolar disorder. ADMIT: 01/07/2017 RM/LOC: 314 [facility] MR#: [id number] 2620 [facility] [address] [place] [id number] FARHEEN CHILDRESS [address] [place] [id number] History and Physical SEX: M AGE: 51 : 1965 7. Intellectual disability. PLAN: Admit to ICU. We will order a sepsis workup including lactic acid, Procalcitonin, blood culture, and urine studies. I am also going to check his lipase and amylase because of his history of pancreatitis. I will hold off on starting any antibiotics, but I did consult Dr. Rivera who has followed him in the past. We will go ahead and do IV fluid bolus per sepsis protocol. My main opinion is that he has hypotension and tachycardia due to dehydration and his fevers are chronic problem with uncertain etiology. We will order IV Protonix and if he can tolerate oral, let him take oral Carafate as well for his known esophageal ulceration. Elizabeth Ferrer MD/ kristenl JOB #: [id number] CC: Ej Mccauley, Attending Physician Ej Mccauley, Family Physician
--- NOTE | 2017-01-10 11:26 | CO ---
ADMIT: 01/07/2017 RM/LOC: 314 [facility] MR#: [id number] [address] [address] FARHEEN CHILDRESS [address] [place] [address] Consultation SEX: M AGE: 51 : 1965 DATE OF CONSULTATION: 01/07/2017 ATTENDING PHYSICIAN: Ej Mccauley CONSULTING PHYSICIAN: Bing Rivera MD REASON FOR CONSULT: Sepsis. Thank you, Dr. Ferrer, for the consult and involving me in this patient's care. HISTORY OF PRESENT ILLNESS: Mr. Childress is a 51-year-old man with history of mental disability, who lives at [facility]. He was brought in by his police or patrol park officer to Dr. Ferrer's office as he started complaining of nausea and vomiting since yesterday associated with fever of 102. He was recently discharged last month from the hospital where he had acute pancreatitis and fever and also found to have upper GI bleed secondary to severe erosive esophagitis and duodenitis. History was obtained from the police or patrol park officer. As per her, since discharge, he was doing fine and did not any episodes of fever until yesterday. At present, patient is unable to give any more history. PAST MEDICAL HISTORY: 1. Bipolar disorder. 2. Mental disability. 3. Hyperlipidemia. 4. Chronic constipation. 5. Pancreatitis. 6. Upper GI bleed. PAST SURGICAL HISTORY: Cholecystectomy in 2013. SOCIAL HISTORY: The patient lives at home with a police or patrol park officer and [facility]. He denies any smoking, alcohol, or recreational drug use. FAMILY HISTORY: Significant for diabetes mellitus in his mother. ALLERGIES: NO KNOWN DRUG ALLERGIES. HOME MEDICATIONS: Reviewed. REVIEW OF SYSTEMS: Complete review of systems unable to obtain as the patient is currently not answering to any questions. PHYSICAL EXAMINATION: VITAL SIGNS: Current temperature is 97.6, blood pressure 98/58, respirations 19, heart rate 124, 95% on room air. GENERAL: In no acute distress. HEENT: Head, normocephalic and atraumatic. Extraocular movements intact. LYMPH: No palpable anterior/posterior cervical or supraclavicular lymphadenopathy. ADMIT: 01/07/2017 RM/LOC: 314 [facility] MR#: [id number] [address] [address] [place] FARHE[place] [address] [place] [address] Consultation SEX: M AGE: 51 : 1965 CHEST: Decreased breath sounds at bases. Otherwise, clear to auscultation bilaterally. CARDIOVASCULAR: S1 and S2 heard. Tachycardia. Regular rate and rhythm. ABDOMEN: Soft. Diffuse tenderness to palpation. Active bowel sounds. Mildly obese. EXTREMITIES: No peripheral edema. PSYCH: Flat affect. Currently, nonverbal. SKIN: No rash noted on exposed skin. LABORATORY DATA: Reviewed. CBC done at the office showed white count of 13.8 with 24% bands. Hemoglobin is 11.7, platelets is 391. CMP showed a creatinine of 1.37, low albumin of 2.8, normal AST and ALT. Lactic acid is 2.3. ASSESSMENT AND PLAN: 1. Sepsis, likely secondary to pancreatic source. He was unable to hold still in the MRI machine during his last admission. Hence, I will get a CT abdomen and pelvis with IV contrast. Continue fluid resuscitation and I will also start him on IV meropenem. We will draw two sets of blood cultures prior to antibiotics. 2. Dehydration. 3. History of recent gastrointestinal bleed. 4. Mental disability. 5. Bipolar disorder. Thank you for the consult and I will continue to follow the patient. Bnig Rivera MD/ letitia JOB #: [id number] CC: Ej Mccauley, Attending Physician Ej Mccauley, Family Physician
[2017-01-10] MEDS ORDERED: GLUTOSE 1537.5 GM PO (13:46)
[2017-01-10] MEDS ORDERED: DULCOLAX-DPS10 MG PR (13:47)
[2017-01-10] MEDS ORDERED: GLUCAGON HCL1 MG IM (13:47)
[2017-01-10] MEDS ORDERED: ONDANSETRON JT (13:47)
[2017-01-10] MEDS ORDERED: OMEPRAZOLE20 MG JT (13:48)
[2017-01-10] MEDS ORDERED: MERREM500 MG IV (13:49)
--- NOTE | 2017-01-16 21:02 | DS ---
ADMIT: 01/07/2017 RM/LOC: 314 [facility] MR#: [id number] [address] [address] FARHEEN CHILDRESS [address] [place] [address] General Discharge Summary SEX: M AGE: 51 : 1965 ADMISSION DATE: 01/07/2017 DISCHARGE DATE: 01/08/2017 FINAL DIAGNOSES: 1. Acute dehydration and acute renal failure. 2. Pancreatitis with pancreatic pseudocyst. 3. Esophageal ulcer. 4. Recurrent fever of uncertain origin. 5. Diabetes type 2. 6. Intellectual delay. 7. Bipolar disorder. The patient was admitted on 01/07/2017 with weakness, fever, and vomiting for 3 days. He has actually been hospitalized in November for 19 days for pancreatitis and esophageal ulcer. On dismissal, he had been eating fairly well, but after about 2 to 3 days at home started to vomit and run a fever. He cannot give a good history because of his intellectual disabilities. He lives with the family, who cares for him and is able to give his history for us. He did have a past history of cholecystectomy in 2013, at that time had gallstones and pancreatitis. For this recurrent pancreatitis, it is of uncertain origin as scans have shown no obvious stones or abnormalities. On admission to the hospital, CT scan shows pancreatic pseudocyst, which is new since November. He continues to spike fevers. He is nauseated. LABORATORY DATA: Included creatinine of 1.37, which improved to 0.6 on dismissal date. His electrolytes are normal on the date of transfer and bilirubin is 0.6, AST and ALT are 24 and 18 respectively. Amylase 40 and lipase 142. White count 7.6 with a hemoglobin of 8.7. DISPOSITION: He will be transferred to [facility] under the care of Dr. Bryan Ashford, who is the accepting physician. He will be admitted to their progressive care unit, and Interventional Radiology and Gastroenterology Consultations will be obtained. Caregiver understands risk of transfer includes decompensation in route and the patient's anxiety with transfer, and benefit is interventions from specialists. She agreed to the transfer and signed as his guardian. He was transferred by BLS ambulance on 01/08/2017. Elizabeth Ferrer MD/ letitia JOB #: [id number] CC: Ej Mccauley MD, Attending Physician Ej Mccaulye MD, Family Physician
[2017-02-13] MEDS ORDERED: MAG-OX400 MG JT (14:12)
[2017-02-13] MEDS ORDERED: VIOKACE 10,4401 EACH GT (14:13)
[2017-02-13] MEDS ORDERED: LOPRESSOR DPS12.5 MG JT (14:18)
[2017-02-13] MEDS ORDERED: AMOX TR-K400 MG/5 M JT (14:18)
[2017-02-13] MEDS ORDERED: HUMULIN N100 UNIT/1 SQ (14:18)
[2017-03-15] MEDS ORDERED: LOVENOX DP40 MG/0.4 SQ (18:39)
[2017-03-15] MEDS ORDERED: BACITRACIN15 G1 TP (18:39)
[2017-03-15] MEDS ORDERED: POTASSIUM20 MEQ/15 JT (18:40)
[2017-03-15] MEDS ORDERED: TYLENOL DP650 MG/20. JT (18:45)
[2017-03-15] MEDS ORDERED: DOCU LIQUI50 MG/5 ML JT (18:45)
== END 2017-01-08 14:30 | disposition short-term general hospital (02) | DRG 871 ==
LOC: 3ICU 12:10
PROVIDERS: ADMIT Family Medicine
DX: A41.9 Sepsis, unspecified organism (principal); K85.90 Acute pancreatitis without necrosis or infection, unspecified; N17.9 Acute kidney failure, unspecified; K86.3 Pseudocyst of pancreas; I95.9 Hypotension, unspecified; F72 Severe intellectual disabilities; K22.10 Ulcer of esophagus without bleeding; R50.9 Fever, unspecified; K29.80 Duodenitis without bleeding; E78.5 Hyperlipidemia, unspecified; K59.00 Constipation, unspecified; E11.9 Type 2 diabetes mellitus without complications; F31.9 Bipolar disorder, unspecified; E86.0 Dehydration; Z79.4 Long term (current) use of insulin

== ENCOUNTER 2017-02-11 16:45 | Observation (INO) | payer MEDICARE, MEDICAID ==
[~2017-02-11] VITALS: Ht 160 cm; Wt 65.4 kg
[~2017-02-11 16:45] MED LIST changes: +GLUCAGON HCL1 MG IM; +GLUTOSE 1537.5 GM PO; +MERREM500 MG IV; +OMEPRAZOLE20 MG JT; +ONDANSETRON JT
--- NOTE | 2017-02-13 11:26 | HP ---
ADMIT: 02/11/2017 RM/LOC: 503 [facility] MR#: [id number] [address] [address] [facility] [address] [place] [address] History and Physical SEX: M AGE: 51 : 1965 DATE OF SERVICE: CHIEF COMPLAINT: Clogged J-tube. HISTORY OF PRESENT ILLNESS: The patient is a 51-year-old male, with an extensive recent past medical history due to the gallstone pancreatitis and subsequent pseudocyst formation, status post percutaneous drain placement. Approximately 4 weeks ago, the patient was transferred to [facility] due to development of the pseudocyst and a percutaneous drain was placed at that time. He has continued to have drainage from that tube and then reportedly 10 days ago, a J-tube was placed. The patient has been instructed to take nothing by mouth and has been receiving all meds and nutrition through his J- tube. Unfortunately, this afternoon, the tube became clogged and 2 attempts in the ER were unsuccessful relieving the occlusion. Unfortunately, the french edge operator was not at the bedside during this interview, but reportedly he has otherwise been well without any change from his baseline or any fevers, vomiting, diarrhea, or altered mental status. We decided the best way to coordinate replacement of his J-tube was to admit the patient overnight and ask IR to complete that in the morning. PAST MEDICAL HISTORY: 1. Intellectual disability. 2. Gallstone pancreatitis with subsequent pseudocyst formation, status post percutaneous drain. 3. Type 2 diabetes mellitus. 4. Hyperlipidemia. 5. History of severe esophagitis and ulceration in November of 2016. 6. Bipolar disorder. PAST SURGICAL HISTORY: EGD in November 2016, percutaneous pseudocyst drain and J-tube placement as well as cholecystectomy. FAMILY HISTORY: Unobtainable. SOCIAL HISTORY: The patient lives in the individual home with a full-time caregiver. He does not uses tobacco, alcohol, or any illicit drugs. At home, he is verbal and completes all of his activities of daily living, but does not make much conversation during the interview. ALLERGIES: INTOLERANCE TO NORCO. MEDICATIONS: An up-to-date medication list has not yet been made available, we will review when the french edge operator returns. REVIEW OF SYSTEMS: A 10-point review of systems was completed and is negative as per the HPI. PHYSICAL EXAMINATION: VITAL SIGNS: Blood pressure 108/73, pulse 115, respirations 18, oxygen saturation 97% on room air, temperature 97.2. ADMIT: 02/11/2017 RM/LOC: 503 [facility] MR#: [id number] [facility] [address] [address] [facility] [address] [place] [address] History and Physical SEX: M AGE: 51 : 1965 GENERAL: He awakens easily to voice and is in no acute distress. HEART: Tachycardic, but regular rhythm without murmur. LUNGS: Clear to auscultation, but with poor effort and diminished in bilateral bases. ABDOMEN: Soft. It is nontender to palpation. The percutaneous pseudocyst drain is in place as well as the J-tube neither with any surrounding erythema or drainage. Bowel sounds are hypoactive, but present in all 4 quadrants. EXTREMITIES: Cool to touch without edema or rash. OBJECTIVE DATA: Creatinine 0.7, blood sugar 153, potassium 3.7, magnesium 2.2, sodium 137. ASSESSMENT: 1. Pancreatic pseudocyst, status post percutaneous drain. 2. History of severe esophagitis with ulceration. 3. Type 2 diabetes mellitus. 4. Bipolar disorder. 5. Intellectual disability. PLAN: We will admit the patient for observation overnight with replacement of the J-tube by Interventional Radiology in the morning. At this time, there are no other signs or symptoms of acute illness. As the patient cannot take nothing by mouth, we will give any home meds that can maybe converted to IV, otherwise, we will wait until after the J-tube is placed to resume home medications. We will put the patient on D5 half-normal saline with 40 mEq potassium at 100 mL/hr and treat his diabetes with a sliding scale until caloric intake returns. Cely Foote MD Resident / Warren Goodwin MD / modl JOB #: [id number] CC: Ej Mccauley, Attending Physician Ej Mccauley, Family Physician
[2017-02-13] MEDS ORDERED: MAG-OX400 MG JT (14:12)
[2017-02-13] MEDS ORDERED: VIOKACE 10,4401 EACH GT (14:13)
[2017-02-13] MEDS ORDERED: AMOX TR-K400 MG/5 M JT (14:18)
[2017-02-13] MEDS ORDERED: LOPRESSOR DPS12.5 MG JT (14:18)
[2017-02-13] MEDS ORDERED: HUMULIN N100 UNIT/1 SQ (14:18)
--- NOTE | 2017-02-22 21:34 | ER ---
ADMIT: 02/11/2017 RM/LOC: 503 [facility] MR#: [id number] [address] [address] [facility] [address] [place] [address] Emergency Room Report SEX: M AGE: 51 : 1965 DATE: 02/11/2017 CHIEF COMPLAINT: Plugged J-tube. HISTORY OF PRESENT ILLNESS: This is a 51-year-old male who comes to us from [facility] today after they could not get his J-tube to flush. Field Operator reports last known function was around 1:30 this afternoon. The patient has a dual lumen jejunal/G-tube. The J-tube is the one that is blocked. The gastric tube is draining gastric contents and continues to function. The patient takes no medications or fluids p.o. secondary to pancreatitis. The patient was seen about a month ago with pancreatitis, diagnosed with pseudocyst and was sent to [facility]. They placed a drain in the pseudocyst as well as the double- lumen tube. The patient does have an intellectual disability. History is primarily taken from his distribution lineman and medical records. Denies any complaints today. No pain. No fevers chills, nausea, vomiting, diarrhea, chest pain, recent illness, bloody stools, shortness of breath, cough, problems urinating, history significant for hypertension, pancreatitis, depression, pancreatic pseudocyst, or intellectual disability. COURSE IN THE EMERGENCY ROOM: The patient was seen and examined. He is in no acute distress. Complains of no pain. Exam is otherwise unremarkable. Nursing staff does try to attempt to flush the tube, and they were unable to get it to flush. I did talk with Dr. Junior. He recommended followup with IR tomorrow to see if they could get it to function again. I did then discuss the patient with Dr. Goodwin as the patient is unable to take anything by mouth. We likely need to keep him overnight for fluids and medicines to be given IV. He will admit the patient. IMPRESSION: 1. Blocked jejunostomy tube. 2. Pancreatic pseudocyst. 3. Intellectual disability. DISPOSITION: The patient is going observation Med/Surg in care of Dr. Goodwin. He was discharged from the department in stable condition. HERMAN Whitlock / Aryan Hillman MD / modl JOB #: [id number] CC: Ej Mccauley MD, Attending Physician Ej Mccauley MD, Family Physician
[2017-03-15] MEDS ORDERED: BACITRACIN15 G1 TP (18:39)
[2017-03-15] MEDS ORDERED: LOVENOX DP40 MG/0.4 SQ (18:39)
[2017-03-15] MEDS ORDERED: POTASSIUM20 MEQ/15 JT (18:40)
[2017-03-15] MEDS ORDERED: DOCU LIQUI50 MG/5 ML JT (18:45)
[2017-03-15] MEDS ORDERED: TYLENOL DP650 MG/20. JT (18:45)
== END 2017-02-12 16:30 | disposition home or self-care (01) ==
LOC: ER 16:45 → 5MS 19:40
PROVIDERS: ADMIT Family Medicine
DX: K86.3 Pseudocyst of pancreas (principal); E11.9 Type 2 diabetes mellitus without complications; F31.9 Bipolar disorder, unspecified; F79 Unspecified intellectual disabilities; E78.5 Hyperlipidemia, unspecified; Z90.49 Acquired absence of other specified parts of digestive tract; Z88.5 Allergy status to narcotic agent; Z79.899 Other long term (current) drug therapy

== ENCOUNTER 2017-02-17 16:57 | Emergency (ER) | payer MEDICARE, MEDICAID ==
[~2017-02-17 16:57] MED LIST changes: +AMOX TR-K400 MG/5 M JT; +HUMULIN N100 UNIT/1 SQ; +LOPRESSOR DPS12.5 MG JT; +MAG-OX400 MG JT; +VIOKACE 10,4401 EACH GT
[2017-03-15] MEDS ORDERED: LOVENOX DP40 MG/0.4 SQ (18:39)
[2017-03-15] MEDS ORDERED: BACITRACIN15 G1 TP (18:39)
[2017-03-15] MEDS ORDERED: POTASSIUM20 MEQ/15 JT (18:40)
[2017-03-15] MEDS ORDERED: TYLENOL DP650 MG/20. JT (18:45)
[2017-03-15] MEDS ORDERED: DOCU LIQUI50 MG/5 ML JT (18:45)
== END 2017-02-17 19:35 | disposition home or self-care (01) ==
DX: K86.3 Pseudocyst of pancreas (principal)

== ENCOUNTER 2017-03-03 11:20 | Inpatient (IN) | payer MEDICARE, MEDICAID ==
[~2017-03-03] VITALS: Ht 160 cm; Wt 66.0 kg
--- NOTE | 2017-03-11 14:49 | CO ---
ADMIT: 03/03/2017 RM/LOC: 422 [facility] MR#: [id number] [address] [address] [facility] [address] [place] [address] Consultation SEX: M AGE: 51 : 1965 DATE OF CONSULTATION: 03/11/2017 ATTENDING PHYSICIAN: Ej Mccauley CONSULTING PHYSICIAN: Kateryna Hardwick APRN TIME IN: 0915 hours. TIMEOUT: 0935 hours. REASON FOR CONSULTATION: Supportive care consultation was requested by Dr. Case for discussion of goals for care. HISTORY OF PRESENT ILLNESS: Mr. Childress is a 51-year-old, male with history of intellectual disability as well as diabetes mellitus type 2 and bipolar disorder. He lives at home with a caregiver. He has had issues with recurrent pancreatitis with pseudocyst formation. He unfortunately has had issues with this getting infected and causing recurrent sepsis. He has been hospitalized multiple times including a couple hospital stays at [facility]. He was recently at [facility] from February 17 through February 28 with sepsis and acute renal failure. He eventually discharged home on Augmentin therapy, however, shortly after discharge, developed fevers and mental status changes along with hypotension prompting his presentation to the emergency room on March 03. He was found to be septic with acute renal failure and urinary tract infection. CT of the abdomen and pelvis was done that showed an abscess measuring approximately 7 x 5 cm with a separate loculated fluid collection medial to this measuring 3 cm. He does have a drain in place and the CT scan showed that this was in the correct place. He has remained in the hospital receiving IV antibiotic therapy. The plan is to transition him to orals soon. Due to his multiple complexities, supportive care consultation was requested to discuss goals for care. In terms of advanced directives, the patient is a full code. The patient's mother Loren Childress, whose phone #[phone] is the patient's guardian. The patient also has a caregiver named Yogesh Guzmán whose phone #[phone] who was involved with his care but does not make medical decisions. He does not have a living will or POLST form on file. Symptomatically, the patient denies any major complaints. He is weak and debilitated. He does have a noted intellectual disability. Overall, he denies any major complaints currently. PAST MEDICAL HISTORY: Recurrent pancreatitis initially from gallstone pancreatitis with subsequent pseudocyst formation and then infection with percutaneous drain placement. He also has history of intellectual disability, diabetes mellitus type 2, hyperlipidemia, hypertriglyceridemia, severe erosive esophagitis and ulceration, bipolar disorder, chronic constipation. PAST SURGICAL HISTORY: Percutaneous pseudocyst drain placement, J-tube ADMIT: 03/03/2017 RM/LOC: 422 [facility] MR#: [id number] [facility] [place] [id number] [place] [address] Consultation SEX: M AGE: 51 : 1965 placement, cholecystectomy, and EGD. ALLERGIES: THE PATIENT HAS NO KNOWN MEDICATION ALLERGIES. CURRENT MEDICATIONS: Please see the patient's MAR for specific routes and dosages. His current medications are as follows. 1. Colace. 2. Tylenol. 3. Potassium chloride. 4. Magnesium oxide. 5. Unasyn. 6. Lovenox. 7. Wellbutrin. 8. Maalox. 9. Bacitracin. 10.Zofran. 11.Omeprazole. 12.Lopressor. 13.BuSpar. 14.NovoLog. 15.Tylenol. 16.Nitrostat. SOCIAL HISTORY: The patient lives at home with a caregiver. He does not use alcohol or tobacco. He will likely need placement at discharge due to the fact that his caregiver cannot continue to provide him full-time care. FAMILY HISTORY: Reviewed per chart and noncontributory. FUNCTIONAL REVIEW: Prior to his hospital stay, he was at home. He did have a caregiver who provided assistance with ADLs. It sounds like he can ambulate a short distance. His palliative performance scale prior to admission was around 50%. Currently, he is mostly in bed. He is mainly assistance. He has baseline intellectual difficulties. His current palliative performance scale score is 40%-50%. REVIEW OF SYSTEMS: A 10-point review of systems was completed and although limited due to the patient's baseline cognition and other than those pertinent positives and negatives mentioned the HPI, it is negative. PHYSICAL EXAMINATION: GENERAL: The patient examined in the bed. He is in no acute distress. VITAL SIGNS: Temperature 98, pulse 91, respirations 12, blood pressure 106/65, oxygen 92% on room air. HEENT: Head is normocephalic. Pupils are 3 mm bilaterally and brisk. Oral mucosa pink and dry with poor dentition. NECK: Supple. RESPIRATORY: Respirations are equal, nonlabored at rest. Lungs diminished in ADMIT: 03/03/2017 RM/LOC: 422 [facility] MR#: [id number] [facility] [address] [address] [place] [address] Consultation SEX: M AGE: 51 : 1965 the bases bilaterally. CARDIOVASCULAR: Rate and rhythm regular without murmurs, rubs, or gallops. No edema noted. GASTROINTESTINAL: Slightly distended. Bowel sounds are positive. He does have the PEG tube noted. MUSCULOSKELETAL: Generalized weakness. No obvious joint deformities. INTEGUMENTARY: Skin turgor is fair. No obvious rashes noted. NEUROLOGIC: Oriented to place and time, but a little forgetful. He will follow commands. PSYCHIATRIC: Calm and cooperative. DIAGNOSTIC DATA: Sodium 140, potassium 4.2, BUN 8, creatinine 0.4, total protein 6.4, albumin 2.1. WBC 6.1, hemoglobin 9.2, hematocrit 31.4, and platelets are 251. IMPRESSION: 1. Physical debility. 2. Fatigue. 3. Intellectual disability. 4. Severe protein-calorie malnutrition. 5. Malaise. 6. Pancreatic pseudocyst with recurrent infections. 7. Recurrent sepsis secondary to infected pseudocyst. 8. Urinary tract infection. 9. Acute kidney injury which has resolved. 10.Palliative care. 11.The patient is a full code. PLAN OF TREATMENT: I have attempted to reach the guardian over the course of the past 2 days but have been unable to reach her. In discussion with the ADMIT: 03/03/2017 RM/LOC: 422 [facility] MR#: [id number] [address] [place], [place] [address] [facility] [address] [place] [address] Consultation SEX: M AGE: 51 : 1965 patient's nurse, she states the guardian is on her way from out of state to come visit the patient in the hospital. I did call the patient's caregiver Yogesh and she confirms that the patient's mom will be here tomorrow morning. We will meet with the patient's mother/guardian when she is available at the bedside. We reviewed goals for the time ahead. We would like to thank Dr. Case for the invitation to participate in this patient's care. Total consultation time was 20 minutes from 0915 hours to 0935 hours with 10 minutes from 0915 hours to 0925 hours spent [id number] with the patient or on the phone with the patient's caregiver discussing the patient's status and making arrangements for a meeting with the guardian tomorrow. Kateryna Hardwick APRN/ letitia JOB #: [id number] CC: Ej Mccauley, Attending Physician Ej Mccauley, Family Physician
--- NOTE | 2017-03-14 15:30 | CO ---
ADMIT: 03/03/2017 RM/LOC: 302 [facility] MR#: [id number] [address] [address] [facility] [address] [place] [address] Consultation SEX: M AGE: 51 : 1965 DATE OF CONSULTATION: 03/04/2017 ATTENDING PHYSICIAN: Ej Mccauley CONSULTING PHYSICIAN: Bing Rivera MD REASON FOR CONSULTATION: Sepsis. Thank you, Dr. Mccauley, for the consult and involving me in this patient's care. HISTORY OF PRESENT ILLNESS: Mr. Childress is a 51-year-old man, well known to me from his prior admissions. Since the last few months, he has been struggling with recurrent pancreatitis and later developed a pseudocyst formation. He had recurrent episodes of sepsis secondary to infected pseudocyst and was transferred to [facility] twice. He was hospitalized in January and last in February with sepsis and acute renal failure. He was discharged on oral Augmentin. He presented to the ER yesterday with hypotension and he appeared to be more irritable. He has mental disability at baseline. His blood pressure was 70/40 and he did not have any fever while in the ER. He was hydrated aggressively and is currently in ICU. His creatinine was elevated to 4.1, which is improved with IV fluids. He is not requiring any pressors at this time. PAST MEDICAL HISTORY: 1. Recurrent pancreatitis. 2. Diabetes mellitus. 3. Mental disability. 4. Subsequent pseudocyst formation, status post drain. 5. Hyperlipidemia. 6. Hypertriglyceridemia. 7. Erosive esophagitis. 8. Bipolar disorder. 9. Chronic constipation. PAST SURGICAL HISTORY: 1. Percutaneous pseudocyst drain. 2. J-tube placement. 3. EGD. 4. Status post cholecystectomy. ALLERGIES: NO KNOWN DRUG ALLERGIES. CURRENT MEDICATIONS: 1. BuSpar. 2. Lopressor. 3. Omeprazole. 4. Wellbutrin. 5. Meropenem 500 mg twice daily. ADMIT: 03/03/2017 RM/LOC: 302 [facility] MR#: [id number] [address] [address] [facility] [address] [place] [address] Consultation SEX: M AGE: 51 : 1965 SOCIAL HISTORY: He lives with caregiver. No smoking, alcohol, or recreational drug use. FAMILY HISTORY: Unable to obtain as the patient is currently not talking. REVIEW OF SYSTEMS: A complete review of systems is unable to obtain as the patient is currently not talking. PHYSICAL EXAMINATION: VITAL SIGNS: Current temperature is 97.4, heart rate 98, respirations 25, blood pressure 106/65, 95% on room air. GENERAL: In no acute distress. HEENT: Head, normocephalic and atraumatic. Oral mucosa dry. He appears extremely pale. CHEST: Decreased breath sounds bilaterally. No wheezes, rales, or rhonchi. CARDIOVASCULAR: S1 and S2 heard. Regular rate and rhythm. ABDOMEN: Soft, nontender. He has percutaneous drain draining biliary drainage and a J-tube. Active bowel sounds. EXTREMITIES: No peripheral edema. SKIN: No rash noted on exposed skin. DATA REVIEW: WBC count today is 10.3, hemoglobin 9.5, and platelets 308. BMP shows creatinine of 2.3. Normal lipase 216. His UA had 20 wbc's and 4 rbc's, culture is pending at this time. ASSESSMENT AND PLAN: 1. Sepsis, likely abdominal source. Blood cultures are pending. I will get a CT of abdomen and pelvis at this time. 2. Acute kidney injury, likely prerenal. Creatinine improving with hydration. 3. Recurrent pancreatitis. 4. Pseudocyst, status post percutaneous drain. 5. Mental disability. I will continue with meropenem for now and obtain culture results from [facility]. We will narrow his antibiotics down over the next few days. Thank you for the consult, and I will continue to follow the patient. Bing Rivera MD/ letitia JOB #: [id number] CC: Ej Mccauley, Attending Physician Ej Mccauley, Family Physician
[2017-03-15] MEDS ORDERED: LOVENOX DP40 MG/0.4 SQ (18:39)
[2017-03-15] MEDS ORDERED: BACITRACIN15 G1 TP (18:39)
[2017-03-15] MEDS ORDERED: POTASSIUM20 MEQ/15 JT (18:40)
[2017-03-15] MEDS ORDERED: DOCU LIQUI50 MG/5 ML JT (18:45)
[2017-03-15] MEDS ORDERED: TYLENOL DP650 MG/20. JT (18:45)
--- NOTE | 2017-03-21 15:00 | ER ---
ADMIT: 03/03/2017 RM/LOC: 302 [facility] MR#: [id number] [address] [address] [facility] [address] [place] [address] Emergency Room Report SEX: M AGE: 51 : 1965 DATE: 03/03/2017 ADDENDUM: A 51-year-old white male coming in with low blood pressure. He is ruled out of sepsis, normal lactate of 1.5. However, he has a white count of 15,000. His MAP was low, so he got the entire fluid antibiotic. Appears to be dehydrated, so we are calling him dehydration renal failure, which he has had before. At this time, Dr. Mccauley will admit him. CONDITION ON DISCHARGE: Serious, but stable. Ferdrick Sahni MD/ modl JOB #: [id number] CC: Ej Mccauley MD, Attending Physician Ej Mccauley MD, Family Physician
--- NOTE | 2017-04-05 16:44 | HP ---
ADMIT: 03/03/2017 RM/LOC: 302 [facility] MR#: [id number] [address] [address] FARHEEN CHILDRESS [address] [place] [address] History and Physical SEX: M AGE: 51 : 1965 DATE OF SERVICE: CHIEF COMPLAINT: Fever, hypotension. HISTORY OF PRESENT ILLNESS: This is a 51-year-old white male, well known to me, who has had significant difficulty with recurrent pancreatitis, subsequent pseudocyst formation and then recurrent episodes of sepsis secondary to the infected pseudocyst. He has been transferred to [facility] at least twice. The last one he was hospitalized 02/17 to 02/25/2017 with sepsis and acute renal failure. He had been on p.o. Augmentin. Developed hypotension, fever, and acute renal failure, was stabilized and transferred up there. Received IV antibiotics and sent home again on Augmentin on 02/25/2017. He did okay the next couple of days. Then, on 03/01, his caregiver noted that his blood sugars had increased a little bit, which was unusual for him and he became a little bit more irritable. He does not really complain of anything due to his mental disability. On 03/02, he had increasing blood sugars up in the low 200s, he became weak, he looked peaked, more irritable, and Home Health come out to evaluate him today, found his blood pressure 70/40 without fever or chills, but felt that he was diaphoretic and needed evaluation. He presented to the emergency room, where he was found to be in acute renal failure and septic with dehydration; therefore, he is being admitted to the ICU for stabilization. The caregiver is not keen on transfer back to [facility] at least at this point. She is frustrated with continued problems and would like to treat here if at all possible. Therefore, he is being admitted for IV antibiotics and IV fluid resuscitation. PAST MEDICAL HISTORY: Extensive and remarkable for recurrent pancreatitis, initially from gallstone pancreatitis, subsequent pseudocyst formation and then pseudocyst infection with percutaneous drain, mental disability, diabetes mellitus type 2, hyperlipidemia, hypertriglyceridemia, severe erosive esophagitis and ulceration, bipolar disorder, chronic constipation. PAST SURGICAL HISTORY: Include percutaneous pseudocyst drain, J tube placement, cholecystectomy, and EGD. CURRENT MEDICATIONS: Include: 1. Acetaminophen every 6 hours as needed 20.3 mL. 2. Bupropion 100 mg three times daily. 3. Augmentin 3 times daily for the next 30 days. 4. Buspirone 10 mg q.i.d. 5. Fanapt 12 mg daily. 6. Magnesium carbonate 108 mg daily. 7. Metoprolol 6.25 mg b.i.d. 8. Omeprazole 5 mL b.i.d. 9. Zofran 8 mg q.8 hours. 10.NovoLog sliding scale. ALLERGIES: NONE. ADMIT: 03/03/2017 RM/LOC: 302 [facility] MR#: [id number] [address] [place] [id number] FARHE[facility] CHILDRESS [address] [place] [address] History and Physical SEX: M AGE: 51 : 1965 FAMILY HISTORY: Unobtainable. SOCIAL HISTORY: Lives with caregiver; however, she is starting a new job and will not be able to provide him full care. She cannot get long-term health company to assist with the care or any caregiver, so we are looking at senior living placement at least for short time. REVIEW OF SYSTEMS: Unobtainable secondary to his mental status. PHYSICAL EXAMINATION: VITAL SIGNS: Blood pressure was initially 83/47, now it is over 100 systolic with a MAP of 75, heart rate 118, temp is 98.0, respirations 24. GENERAL: He is in no acute distress. He is alert. He has been rehydrated with IV fluids in the emergency room per sepsis protocol. He is alert, interactive. HEENT: Pupils are reactive. Conjunctivae clear. Mild drying of mucous membranes. NECK: Soft and supple. LUNGS: Clear to auscultation with normal respiratory effort. HEART: Tachycardic, but regular. ABDOMEN: Soft. It is nontender. EXTREMITIES: No cyanosis, no clubbing, no edema. NEUROLOGIC: Cranial nerves II through XII are grossly intact. LAB AND X-RAY DATA: Shows a white count of 14,000. Hemoglobin 12.2, platelets 368,000. Procalcitonin is 0.46. Lactic acid was 1.5. Chest x-ray, negative. INR is 1.07. UA shows 2+ leukocyte esterase, 20 white blood cells, 4 RBCs. Sodium 130, potassium 3.9, chloride 93, CO2 of 23, BUN 82, creatinine 4.1, glucose 199, inorganic phosphorus 11.4. Total bilirubin is 0.3. Total protein 9.5, albumin 3.4, alkaline phosphatase 204, AST 26, ALT 35, amylase 66, lipase 259. Magnesium 2.9. CK 20. MB less than 0.05. Relative index of less than 2.5. Troponin I is less than 0.015. Urine sodium was 29. ASSESSMENT: 1. Sepsis. 2. Acute kidney injury. 3. Pancreatic pseudocyst. 4. Mental disability. 5. Diabetes mellitus type 2. 6. Urinary tract infection. 7. Bipolar disorder. 8. Erosive esophagitis. ADMIT: 03/03/2017 RM/LOC: 302 [facility] MR#: [id number] [address] [address] FARHEEN CHILDRESS [address] [place] [address] History and Physical SEX: M AGE: 51 : 1965 9. Chronic constipation. PLAN: He has been admitted to the ICU. He has been rehydrated. We will recheck labs and start IV Merrem. Rehydrate and recheck kidney function in the a.m. Caregiver is not thrilled about having to go back to [facility] as she states that they have not been doing anything other than IV antibiotics. She has a followup appointment for tube check on September 11, but they may move that to September 19, when she has Infectious Disease follow up. At any rate, we will rehydrate, recheck kidney function in a.m. and change treatment plan as hospital course dictates. Overall critical care time spent with the patient was 45 minutes. Ej Mccauley MD/ letitia JOB #: [id number] CC: Ej Mccauley, Attending Physician Ej Mccauley, Family Physician
--- NOTE | 2017-05-12 10:20 | DS ---
ADMIT: 03/03/2017 RM/LOC: 422 [facility] MR#: [id number] [address] [address] FARHEEN CHILDRESS [address] [place] [address] General Discharge Summary SEX: M AGE: 51 : 1965 ADMISSION DATE: 03/03/2017 DISCHARGE DATE: 03/13/2017 FINAL DIAGNOSIS: 1. Infected pancreatic pseudocyst with abscess formation. 2. Sepsis. 3. Acute kidney injury secondary to sepsis. 4. Mental disability. 5. UTI (urinary tract infection). 6. Diabetes mellitus, type 2. 7. Bipolar. 8. Erosive esophagitis. 9. Chronic constipation. 10.Hypokalemia. REASON FOR ADMISSION: Tyler Childress is a 51-year-old, white male who has developed a pseudocyst secondary to recurrent pancreatitis and unfortunately has developed an infection and abscess formation. He presented with recurrent sepsis, hypotension, acute renal failure and dehydration. Therefore he was admitted for further stabilization. HOSPITAL COURSE: He was admitted on 03/03/2017 to the ICU, started on IV normal saline, IV Merrem. Lactic acid and procalcitonin levels for a monitored. We did resume his tube feedings. Enoxaparin was used for DVT prophylaxis. On 03/04/2017, his potassium was a little bit low so we did replace that. We did consult Dr. Rivera, Infectious Disease. On 03/05/2017, he had a good night. Blood pressure was under good control. He did have a bowel movement. His potassium was still a little bit low, so this was replaced. He was transferred to telemetry. He was given more IV fluids. His Merrem dose was adjusted. Interventional readjusted the drain to better drain the abscess. Caregiver remained involved in his care. On 03/07/2017, we did get Physical Therapy involved to increase his activity. He did need much encouragement. His sodium was a little bit elevated, so we did change his IV fluids to half-normal saline. Dr. Rivera switched him over to Unasyn after reviewing cultures from [facility]. On 03/08/2017, his potassium was replaced once again, he was given some IV iron. On 03/09/2017, Supportive Care was consulted. On 03/10/2017, he had no new complaints, denied pain. Magnesium was a little bit low, so this was replaced IV as well. His acute kidney injury had resolved. We discontinued any extra IV fluids and placed him on tube feed flushes on 03/11/2017, again, his magnesium was a little bit low. This was replaced. On 03/12/2017, we were working on placement options. Per Dr. Rivera's recommendation she felt p.o. Augmentin upon discharge would be adequate. Supportive Care did meet with family and mom. They recommended DNR/DNI, which the family and caregiver did concur. They were open to hospice later on if the need does arise. Ultimately he was felt stable for discharge and was transferred to [facility]. DISCHARGE INSTRUCTIONS: 1. Lovenox 40 mg subcu at bedtime. ADMIT: 03/03/2017 RM/LOC: 422 [facility] MR#: [id number] [address] [place] [id number] FARHEEN CHILDRESS [address] [place] [address] General Discharge Summary SEX: M AGE: 51 : 1965 2. Bacitracin 0.9 g b.i.d. 3. BuSpar 10 mg q.i.d. 4. Potassium 20 mEq t.i.d. 5. Lopressor 6.25 mg b.i.d. 6. Magnesium oxide 400 mg b.i.d. 7. Omeprazole 10 mg b.i.d. 8. Fanapt 12 mg daily. 9. Wellbutrin 100 mg t.i.d. 10.Zofran 8 mg q.8 hours. 11.NovoLog sliding scale insulin. 12.Colace 100 mg b.i.d. p.r.n. 13.Tylenol 650 mg liquid q.4 hours p.r.n. 14.Augmentin 875 mg b.i.d. for 2 weeks. Follow up with Dr. Rivera March 19. Follow up with Dr. Mccauley next week. PT and OT to follow. Check CBC, BMP next week. DNR/DNI, tube feeds at 65 mL/h. Greater than 30 minutes was spent working on the patient's discharge medications and [facility]. Ej Mccauley MD/ rafal JOB #: [id number] CC: Ej Mccauley MD, Attending Physician Ej Mccauley MD, Family Physician
== END 2017-03-13 14:35 | DRG 871 ==
LOC: ER 11:20 → 3ICU 15:35 → 4PCU 15:35 → 3ICU 03-05 06:50 → 4PCU 03-05 16:51
PROVIDERS: ADMIT Family Medicine
PROC: 0W2GX0Z Change Drainage Device in Peritoneal Cavity, External Approach (ICD-10-PCS; principal; 2017-03-06)
PROC: 0D20XUZ Change Feeding Device in Upper Intestinal Tract, External Approach (ICD-10-PCS; 2017-03-10)
DX: A41.9 Sepsis, unspecified organism (principal); K65.1 Peritoneal abscess; E43 Unspecified severe protein-calorie malnutrition; N17.9 Acute kidney failure, unspecified; I95.9 Hypotension, unspecified; K86.3 Pseudocyst of pancreas; K94.29 Other complications of gastrostomy; K86.1 Other chronic pancreatitis; N39.0 Urinary tract infection, site not specified; E86.0 Dehydration; E87.6 Hypokalemia; K20.8 Other esophagitis; F79 Unspecified intellectual disabilities; E11.9 Type 2 diabetes mellitus without complications; E78.5 Hyperlipidemia, unspecified; E78.1 Pure hyperglyceridemia; F31.9 Bipolar disorder, unspecified; K59.09 Other constipation; Z79.4 Long term (current) use of insulin

== ENCOUNTER 2017-03-20 23:15 | Inpatient (IN) | payer MEDICARE, MEDICAID ==
[~2017-03-20] VITALS: Ht 160 cm; Wt 69.3 kg
--- NOTE | ~2017-03-20 | WND ---
ADMIT: 03/21/2017 RM/LOC: 420 [facility] MR#: [id number] [address] [address] [facility] [address] [place] [address] [facility] SEX: M AGE: 51 : 1965 DATE OF VISIT: 03/21/2017 TIME OF VISIT: 10 minutes. This referral comes from Dr. Mccauley. HISTORY OF PRESENT ILLNESS: Tyler is a 51-year-old mentally disabled gentleman, who presented to the emergency room yesterday with nausea vomiting and no bowel movements. Tyler has a complicated history including insulin- dependent diabetes mellitus, pancreatitis, previous sepsis, and recent cyst formation in his abdomen requiring drains and getting the G tube placed for feeding. He has been having slight decreased output from his drains and some abdominal distention. Tyler is examined in his room in 420. He is lying in bed and appears in no acute distress. PAST MEDICAL HISTORY: Chronic constipation, bipolar disorder, hypertriglyceridemia, mental disability, type 2 diabetes mellitus, pseudocyst formation, and pseudocyst infection with percutaneous drain. PAST SURGICAL HISTORY: Percutaneous pseudocyst drain, J-tube placement, cholecystectomy, and EGD. CURRENT MEDICATIONS: 1. Acetaminophen. 2. Bupropion. 3. Augmentin. 4. Buspirone. 5. Fanapt. 6. Magnesium carbonate. 7. Metoprolol. 8. Omeprazole. 9. Zofran. 10.NovoLog sliding scale. ALLERGIES: No known medication allergies. FAMILY HISTORY: Unobtainable. SOCIAL HISTORY: He is currently living in a retirement. REVIEW OF SYSTEMS: Unobtainable due to his mental status. PHYSICAL EXAMINATION: VITAL SIGNS: Temperature 98 degrees Fahrenheit, pulse 104, respirations 16, blood pressure 98/68, and pulse ox 93% on room air. EXTREMITIES: Assessment of his coccyx area reveals no open areas. There is no induration noted. There is venous congestion and some scar tissue from previous pressure injuries to bilateral gluteal cleft. Bilateral ischial tuberosities without any open areas. Bilateral heels without erythema, ADMIT: 03/21/2017 RM/LOC: 420 [facility] MR#: [id number] [address] [address] [facility] [address] [place] [address] [facility] Clinic SEX: M AGE: 51 : 1965 bogginess, or open areas. ASSESSMENT: 1. Sepsis. 2. Mental disability. 3. High risk for skin breakdown. PLAN: We will continue with the Sensi-Care to his perirectal area and coccyx 4 times daily and as needed. Staff will apply a low air loss mattress to his bed. We will have a pressure-reducing cushion in his chair. Staff will cleanse the buttocks with warm soapy water, rinse, and pat dry daily. They will contact us if they have any future concerns regarding skin breakdown. Sonia Mo APRN/ letitia JOB #: [id number] CC: Ej Mccauley, Attending Physician Ej Mccauley, Family Physician
[~2017-03-20 23:15] MED LIST changes: +DOCU LIQUI50 MG/5 ML JT; +LOVENOX DP40 MG/0.4 SQ; +POTASSIUM20 MEQ/15 JT; +TYLENOL DP650 MG/20. JT
--- NOTE | 2017-03-22 05:33 | CO ---
ADMIT: 03/21/2017 RM/LOC: 420 [facility] MR#: [id number] [address] [address] [place] [address] Consultation SEX: M AGE: 51 : 1965 DATE OF CONSULTATION: 03/21/2017 ATTENDING PHYSICIAN: Ej Mccauley CONSULTING PHYSICIAN: Jay Gutierres MD HISTORY OF PRESENT ILLNESS: Mr. Childress is unfortunate 51-year-old, white male, with complex medical history, most extensively for history of gallstone pancreatitis, and development of subsequent pseudocyst, which became infected earlier this year, and has percutaneous drain in place. He also has history of bipolar disorder, mental retardation, diabetes mellitus type 2, hyperlipidemia, and previous erosive esophagitis. He has a PEG tube in place for nutritional purposes. He was admitted to the hospital from detention with increasing abdominal distention, and emesis of bilious material. There was some concern about bowel obstruction. Subsequently, he underwent CT scan of his abdomen and pelvis. CT scan of his abdomen showed what appears to be an intrahepatic abscess measuring 7 x 3 cm in size. Additionally, there is a small left pleural effusion. He was seen in consultation. Currently, he is not complaining of nausea, vomiting, diarrhea, constipation, or pain. He is currently on oxygen with adequate oxygen saturation. He has not previously had significant effusions. PAST MEDICAL HISTORY: Review of electronic medical records includes extensive history of gallstone pancreatitis with development of pseudocyst. The pseudocyst became infected, and subsequently had percutaneous drain placed. He has had previous cholecystectomy. He has history of bipolar disorder, diabetes mellitus type 2, hyperlipidemia, and reflux with erosive esophagitis and J-tube in place. ALLERGIES: HE HAS NO KNOWN MEDICAL ALLERGIES. HOME MEDICATIONS: 1. Lovenox 40 mg subcu daily. 2. BuSpar 10 mg q.i.d. 3. Potassium chloride 20 mEq b.i.d. 4. Lopressor 12.5 mg b.i.d. 5. Magnesium oxide 400 mg daily. 6. He was also on omeprazole 20 mg b.i.d. 7. Wellbutrin 100 mg t.i.d. 8. Augmentin 875 mg b.i.d. SOCIAL HISTORY: He is single. Lives at [facility]. FAMILY HISTORY: Noncontributory. ADMIT: 03/21/2017 RM/LOC: 420 [facility] MR#: [id number] [address] [address] [place] [address] Consultation SEX: M AGE: 51 : 1965 REVIEW OF SYSTEMS: As above. All organ systems reviewed significant positives and negatives discussed above. PHYSICAL EXAMINATION: VITAL SIGNS: Currently, afebrile though T-max over the last 24 hours of 99. Blood pressure 109/69, pulse of 89. Oxygen saturation 94% on room air at rest. GENERAL: This is a thin, cachectic, chronically ill-appearing white male, currently in no acute respiratory distress at rest. HEENT: Head to be normocephalic, atraumatic. Pupils are equal and reactive. Nares patent. Posterior hypopharynx is clear of acute exudates. NECK: Supple without adenopathy. Trachea midline. CHEST: Clear breath sounds. No rales, rhonchi, wheezes were noted. No cough was elicited on deep breathing. HEART: Tachycardic, but regular. No murmur. ABDOMEN: Soft, slightly distended, he has a percutaneous drainage catheter, connected to HARSHA drainage system with serous material. PEG tube is in place as well. Bui is in place. No guarding or rigidity is noted. EXTREMITIES: Significant muscle atrophy. Moves all extremities without any focal neurologic deficits. He is awake and alert oriented to person, place, and time. Somewhat slow mentation, but answers appropriately. LABORATORY AND X-RAY DATA: Review of labs and x-rays including the CT scan. He appears to be an increasing intrahepatic fluid collection, measuring about 6 x 3 cm, suggestive of an intrahepatic abscess. He has relatively small left pleural effusion. This is not appear on routine x-ray, but is noted on CT scan. Although, the report describes it is large, this is relatively small in size. This may be reactive to his intraabdominal process, or potentially infection. However, given the fact that his labs are otherwise normal, I do not believe that this represents an empyema. Currently, it is too small for drainage. However, if he is going to go down to IR for drainage of his intrahepatic mass, may also possibly put in a small tube to drain the pleural effusion and test for infection. Otherwise, continue to monitor it now, and if it does become worse, then we could do bedside thoracentesis. He has previous history of acute on chronic pancreatitis with development of infected pancreatic pseudocyst, has current drain in place, was on antibiotics as an outpatient, and Infectious Disease consultation has been obtained for ADMIT: 03/21/2017 RM/LOC: 420 [facility] MR#: [id number] [address] [place] [phone] [place] [address] Consultation SEX: M AGE: 51 : 1965 further assessment. He has a history of bipolar disorder, cognitive impairment, continue to monitor. He has diabetes mellitus type 2. He has previous history of erosive esophagitis with PEG tube in place. At this point, until the situation is stabilized, and then initiate tube feeding. We will continue to follow here with you and further recommendations to follow ongoing assessment of his clinical progress. Jay Gutierres MD/ letitia JOB #: [id number] CC: Ej Mccauley, Attending Physician Ej Mccauley, Family Physician
--- NOTE | 2017-03-23 01:36 | ER ---
ADMIT: 03/20/2017 RM/LOC: ER [facility] MR#: [id number] [address] [address] [facility] [address] [place] [address] Emergency Room Report SEX: M AGE: 51 : 1965 DATE: 03/20/2017 CHIEF COMPLAINT: Nausea, vomiting. No bowel movements. HISTORY OF PRESENT ILLNESS: The patient is a 51-year-old male, who has a complicated medical history including insulin-dependent diabetes, pancreatitis, previous sepsis, and recent cyst formation in his abdomen requiring drains and getting the J-tube placed for feeds. He comes in today after he had been discharged from the hospital back to a nursing facility with complaints of not having a bowel movement and having some brownish vomiting. Apparently, he is also having slightly decreased output in his drains and they were concerned about some abdominal distention. REVIEW OF SYSTEMS: The patient is unreliable to get a review of systems due to his baseline mental deficit. 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 PAST SURGICAL HISTORY: Cholecystectomy, abdominal drains, J-tube. MEDICATIONS: See nurse's note. ALLERGIES: NONE. SOCIAL HISTORY: The patient does not smoke, drink, or use drugs, and he is currently living in a retirement. PHYSICAL EXAMINATION: See T-sheet for complete physical exam. Vital signs were 116/79, heart rate of 116, respirations 28, temp 99.1, sats 95% on room air. LABORATORY DATA: White count is 10.5, hemoglobin 10.7, lactic acid 0.7. Chemistries are normal with a potassium of 3.5, glucose of 117, and creatinine of 0.5. Alkaline phosphatase is elevated at 293. CAT scan of the abdomen shows: 1. Increased size in the peripancreatic fluid collections. 2. Large left pleural effusion when compared to previous study three weeks ago. 3. Significant rectal impaction with constipation. No signs of obvious obstruction. MEDICAL DECISION MAKING: Based on patient's recent complicated hospitalizations with sepsis, I am uncomfortable having him go back to his ADMIT: 03/20/2017 RM/LOC: ER [facility] MR#: [id number] [address] [address] [facility] [facility] [address] [place] [address] Emergency Room Report SEX: M AGE: 51 : 1965 facility this evening with the findings that were shown on the CAT scan. As he normally sees Dr. Mccauley, we have contacted Dr. Vitale, who is on this evening for a call, and we will be getting the patient admitted for further management of his findings on CT. IMPRESSION: 1. Nausea and vomiting. 2. Constipation. 3. Rectal impaction. 4. Persistent pancreatic pseudocyst larger. 5. Tachycardia. 6. Left pleural effusion. Logan Garcia MD/ letitia JOB #: [id number] CC: Logan Garcia MD, Attending Physician Ej Mccauley MD, Family Physician
--- NOTE | 2017-03-26 08:13 | HP ---
ADMIT: 03/21/2017 RM/LOC: 420 [facility] MR#: [id number] [address] [address] [facility] [address] [place] [address] History and Physical SEX: M AGE: 51 : 1965 DATE OF SERVICE: CHIEF COMPLAINT: Vomiting. HISTORY OF PRESENT ILLNESS: The patient was transferred from the assisted where he resides after episode of dark-colored emesis and concern for abdominal distention. The nurse reported that over her shift he seemed to become increasingly distended, and with dark-colored emesis, she was concerned for bowel obstruction. She reported very infrequent bowel sounds and normal vitals except for tachycardia. When he presented to the emergency room, he had a similar presentation, did have one episode of vomiting, but none after a dose of Zofran. He denies any current nausea or abdominal pain. He has an extensive past medical history, but he otherwise clinically looks pretty good this admission. He has not been having any fevers, chest pain, shortness of breath. Previous nausea or vomiting, abdominal pain, or diarrhea. alf reports it has been at least 72 hours since his last bowel movement. When asked about his bowel regimen, his p.r.n. has just been initiated today with one dose of oral docusate, using docusate per J-tube. Upon presentation to the ER, workup was completed including labs and a CT scan. Labs were remarkable for normal white blood cell count and lactic acid, and a CT scan with severe stool burden, increased left-sided pleural effusion, and increased intraabdominal abscess volume. The decision was made at that time, to admit the patient for further management of vomiting and chronic constipation. PAST MEDICAL HISTORY: Extensive secondary to gallstone pancreatitis with subsequent pseudocyst formation that then became infected with a current percutaneous drain. Also, significant for cognitive impairment, bipolar disorder, type 2 diabetes mellitus, hyperlipidemia, severe erosive esophagitis with J-tube dependence, and chronic constipation. PAST SURGICAL HISTORY: Includes percutaneous pseudocyst drain placement, placement, cholecystectomy, and EGD. CURRENT MEDICATIONS: 1. Lovenox 40 mg subcutaneous nightly. 2. Bacitracin topical twice daily to the J-tube site. 3. BuSpar 10 mg q.i.d. per J-tube. 4. Potassium chloride 20 mEq/15 mL t.i.d. per J-tube. 5. Lopressor 6.25 mg b.i.d. per J-tube. 6. Magnesium oxide 400 mg b.i.d. per J-tube. 7. Omeprazole 2 mg/mL, 10 mg b.i.d. per J-tube. 8. Fanapt 12 mg one dose daily per J-tube. 9. Wellbutrin 100 mg three times daily per J-tube. 10.Zofran 8 mg, every 8 hours per J-tube. As well as PRN including; 1. Tylenol. 2. Nitrostat. 3. Sliding-scale insulin. 4. Colace.. ADMIT: 03/21/2017 RM/LOC: 420 [facility] MR#: [id number] [address] [place] [id number] [facility] [address] [place] [address] History and Physical SEX: M AGE: 51 : 1965 5. Maalox. ALLERGIES: NO KNOWN MEDICAL ALLERGIES. FAMILY HISTORY: Unobtainable due to the patient's cognition. SOCIAL HISTORY: The patient is now living at [facility]. REVIEW OF SYSTEMS: A 10-point review of systems was completed and negative except as noted in the HPI. PHYSICAL EXAMINATION: VITAL SIGNS: 116/79, 116, 28, 95% on room air, 99.1. GENERAL: The patient is awake, alert, oriented, no acute distress. He makes appropriate conversation. HEENT: Head is normocephalic and atraumatic. Pupils are equal, round, and reactive to light. Extraocular muscles are intact. Mucous membranes are moist. NECK: Supple with no appreciable lymphadenopathy. HEART: Tachycardic, but regular without murmur. LUNGS: Clear to auscultation bilaterally with normal respiratory effort on room air. ABDOMEN: Soft, mildly distended. Nontender to palpation. HARSHA drain and J- tube in place. The sites are without any erythema or drainage. NEUROLOGIC: He is grossly intact. PSYCH: Psychologically, he is calm with appropriate mood and affect. LAB AND DIAGNOSTIC DATA: WBC 10.5, hemoglobin 10.4, platelets 248. Creatinine 0.5, potassium 3.5, CRP 2.01, lactic acid 0.7. CT scan of the abdomen, shows severe stool burden, increased intraabdominal abscess, volume, and increased size of left pleural effusion. ASSESSMENT: 1. Nausea and vomiting, likely secondary to acute on chronic constipation with a concern for possible ileus. 2. Pancreatic pseudocyst, status post percutaneous drain, on antibiotics. 3. Left-sided pleural effusion likely secondary to pancreatitis. 4. Cognitive impairment. 5. Type 2 diabetes mellitus. 6. Recent history of erosive esophagitis with ulceration. ADMIT: 03/21/2017 RM/LOC: 420 [facility] MR#: [id number] [address] [place] [phone] [facility] [address] [place] [address] History and Physical SEX: M AGE: 51 : 1965 7. Bipolar disorder. 8. Hypokalemia. PLAN: We will temporarily hold tube feeds and use antiemetics as needed. The patient would likely benefit from a bowel clean out as he has severe stool burden. We will make antiemetics p.r.n. due to the constipating side effect. There is no current signs or symptoms of worsening pancreatitis, and he is not having difficulty breathing or hypoxia from the increased pleural effusion. At this time, I do not have any plans for thoracentesis for replacement of a percutaneous drain. We will continue the patient's previous Augmentin course which is to end on 03/27. We will otherwise continue home medications per J- tube as tolerated. Cely Foote MD Resident / Tyler Vitale MD / letitia JOB #: [id number] CC: Ej Mccauley, Attending Physician Ej Mccauley, Family Physician
[2017-03-27] MEDS ORDERED: DIFLUCAN DPS200 MG PO (19:29)
[2017-03-27] MEDS ORDERED: MIRALAX PACKET17 GM GT (19:29)
[2017-03-27] MEDS ORDERED: LOVENOX DP40 MG/0.4 SQ (19:29)
[2017-03-27] MEDS ORDERED: BUSPAR DPS10 MG JT (19:30)
[2017-03-27] MEDS ORDERED: BACITRACIN15 G1 TP (19:30)
[2017-03-27] MEDS ORDERED: LOPRESSOR DPS12.5 MG JT (19:31)
[2017-03-27] MEDS ORDERED: MAG-OX400 MG JT (19:31)
[2017-03-27] MEDS ORDERED: POTASSIUM20 MEQ/15 JT (19:31)
[2017-03-27] MEDS ORDERED: WELLBUTRIN100 MG JT (19:33)
[2017-03-27] MEDS ORDERED: PRILOSEC DPS20 MG JT (19:33)
[2017-03-27] MEDS ORDERED: TYLENOL DP650 MG/20. PO (19:35)
--- NOTE | 2017-05-12 10:20 | DS ---
ADMIT: 03/21/2017 RM/LOC: 420 [facility] MR#: [id number] [address] [address] FARHE[facility] CHILDRESS [address] [place] [address] General Discharge Summary SEX: M AGE: 51 : 1965 ADMISSION DATE: 03/21/2017 DISCHARGE DATE: 03/26/2017 ADMISSION DIAGNOSIS: Nausea and vomiting secondary to acute on chronic constipation. DISCHARGE DIAGNOSES: 1. Nausea and vomiting secondary to acute on chronic constipation. 2. Left-sided pleural effusion likely secondary to pancreatitis. 3. Pancreatic pseudocyst status post percutaneous drain on antibiotics. 4. Cognitive impairment. 5. Type 2 diabetes mellitus. 6. Recent history of erosive esophagitis with ulceration with PEG tube now in place. 7. Bipolar disorder. 8. Hypokalemia. CONSULTATIONS: Pulmonology, Interventional Radiology, and Infectious Disease. PROCEDURES: Percutaneous pseudocyst drain replacement on 03/21/2017. HISTORY OF PRESENT ILLNESS: The patient is a 51-year-old male with complicated past medical history due to gallstone pancreatitis leading to pancreatic pseudocyst status post percutaneous drain as well as erosive esophagitis with ulceration. He presented to the emergency room this hospitalization due to dark colored emesis, abdominal distention, and decreased bowel sounds. Nursing reports that the patient has not had a bowel movement at least 72 hours, though bowel regimen had just recently been initiated. His labs were normal upon admission, but his CP stand did show severe stool burden, increased left-sided pleural effusion, and concern for possible new hepatic abscess. The patient was continued on his outpatient antibiotics and tube feeds were held upon admission. He was given antiemetics as needed. He had no respiratory distress or symptoms from his pleural effusion or signs of worsening pancreatitis such as pain. HOSPITAL COURSE: Pulmonology was consulted due to the increase in the patient's pleural effusion and they commented that the pleural effusion was relatively small, in fact too small for drainage and given the fact that he had normal labs, it was not felt that this effusion would represent an empyema. It was decided to monitor the pleural effusion and if it were to increase in size, we would consider bedside thoracentesis at that time. The patient was given a more aggressive bowel regimen with MiraLAX and Dulcolax suppositories. IR was asked to review drain placement. There was not as significant of output from his percutaneous drain in his pseudocyst. On 03/21, drain was replaced and fluid sample was sent for culture. Cultures including wound and blood cultures were all no growth. Infectious Disease was consulted and broadened his antibiotics from Augmentin to Flagyl and meropenem and then Diflucan was added. The patient clinically did very well and on hospital day #5, was dismissed back to his previous custodial facility. ADMIT: 03/21/2017 RM/LOC: 420 [facility] MR#: [id number] [facility] [place] [id number] FARHEEN CHILDRESS [address] [place] [address] General Discharge Summary SEX: M AGE: 51 : 1965 Abdominal ultrasound completed on the day of discharge. Again, visualized the hyperechoic structure in the liver that could not exclude developing abscess or fluid collection, but did not have the typical appearance. Close followup was recommended. MEDICATIONS ON DISCHARGE: 1. Diflucan 200 mg p.o. daily for 7 days. 2. MiraLax 17 g per G-tube t.i.d. 3. Lovenox 40 mg subcu at bedtime. 4. Bacitracin 0.9 g topical b.i.d. 5. BuSpar 10 mg q.i.d. per J-tube. 6. Potassium chloride 20 mEq t.i.d. per J-tube. 7. Lopressor 12.5 mg b.i.d. per J-tube. 8. Magnesium oxide 400 mg b.i.d. per J-tube. 9. Omeprazole 10 mg b.i.d. per J-tube. 10.Wellbutrin 100 mg t.i.d. per J-tube. 11.Tylenol suspension 650 mg q.4 hours p.r.n. pain per J-tube. 12.Ertapenem 1 g IV daily for 3 weeks. CONDITION: Stable. DISPOSITION: Back to [facility]. FOLLOWUP: Abdominal ultrasound was scheduled for April 08 at 8:45 a.m. He is also scheduled on followup with Dr. Mccauley on April [address] Rivera on April 04. He will have a repeat CBC, CMP, and magnesium in 1 week from discharge. Cely Foote MD Resident / Ej Mccauley MD / modl JOB #: [id number] CC: Ej Mccauley MD, Attending Physician Ej Mccauley MD, Family Physician
== END 2017-03-26 15:47 | DRG 388 ==
LOC: ER 23:15 → 4PCU 03-21 02:01
PROVIDERS: ADMIT Family Medicine
PROC: 0W9G30Z Drainage of Peritoneal Cavity with Drainage Device, Percutaneous Approach (ICD-10-PCS; principal; 2017-03-21)
DX: K56.41 Fecal impaction (principal); K65.1 Peritoneal abscess; K75.0 Abscess of liver; L89.152 Pressure ulcer of sacral region, stage 2; E46 Unspecified protein-calorie malnutrition; K86.3 Pseudocyst of pancreas; K86.1 Other chronic pancreatitis; F79 Unspecified intellectual disabilities; E87.6 Hypokalemia; E11.9 Type 2 diabetes mellitus without complications; K21.9 Gastro-esophageal reflux disease without esophagitis; F31.9 Bipolar disorder, unspecified; E78.5 Hyperlipidemia, unspecified; K20.8 Other esophagitis; Z79.4 Long term (current) use of insulin; Z93.4 Other artificial openings of gastrointestinal tract status

== ENCOUNTER 2017-03-27 16:53 | Emergency (ER) | payer MEDICARE, MEDICAID ==
[2017-03-27] MEDS ORDERED: MIRALAX PACKET17 GM GT (19:29)
[2017-03-27] MEDS ORDERED: LOVENOX DP40 MG/0.4 SQ (19:29)
[2017-03-27] MEDS ORDERED: DIFLUCAN DPS200 MG PO (19:29)
[2017-03-27] MEDS ORDERED: BUSPAR DPS10 MG JT (19:30)
[2017-03-27] MEDS ORDERED: BACITRACIN15 G1 TP (19:30)
[2017-03-27] MEDS ORDERED: POTASSIUM20 MEQ/15 JT (19:31)
[2017-03-27] MEDS ORDERED: LOPRESSOR DPS12.5 MG JT (19:31)
[2017-03-27] MEDS ORDERED: MAG-OX400 MG JT (19:31)
[2017-03-27] MEDS ORDERED: PRILOSEC DPS20 MG JT (19:33)
[2017-03-27] MEDS ORDERED: WELLBUTRIN100 MG JT (19:33)
[2017-03-27] MEDS ORDERED: TYLENOL DP650 MG/20. PO (19:35)
--- NOTE | 2017-03-28 08:17 | ER ---
ADMIT: 03/27/2017 RM/LOC: ER [facility] MR#: [id number] 2620 [facility] [address] [place] [phone] [facility] [address] [place] [address] Emergency Room Report SEX: M AGE: 51 : 1965 DATE: 03/27/2017 ADDENDUM: See T-sheet for complete H and P. The patient is a 51-year-old male with a history of gallstone pancreatitis and development of pseudocyst, who has had abdominal drains placed for this quite some time, who comes in with some concern that maybe his abdomen is little more distended. He has no complaints himself, but he has have history of MR and is fairly low function, is not a good historian. He recently just had an admission in the last week when the CT showed that he might have increased fluid collection and a small pleural effusion. From my understanding, there was a CT guided replacement of a drain during this admission has been back [facility] his [facility]. I do talk to a woman who has been his home health provider in the past, who states he is always tachycardic and is not new for him and he is often hypotensive. He is tachycardic and hypotensive here with a heart rate in the one teens and blood pressure approximately 90 over 50s. She states that is often his normal. As he is a poor historian, I do feel obligated to do some objective testing to look into this further, so I did check some labs here which were currently pending and planning on getting a CT abdomen and pelvis. The remainder of his disposition will be checked out to Dr. Lee with final disposition. Logan Garcia MD/ letitia JOB #: [id number] CC: Logan Garcia MD, Attending Physician UNKNOWN, Family Physician
--- NOTE | 2017-03-28 13:20 | NUR ---
Pt triggered for high risk ER user.
--- NOTE | 2017-03-28 13:30 | NUR ---
Pt resides at [facility].
--- NOTE | 2017-03-28 19:27 | ER ---
ADMIT: 03/27/2017 RM/LOC: ER [facility] MR#: [id number] [address] [address] [facility] [address] [place] [address] Emergency Room Report SEX: M AGE: 51 : 1965 DATE: 03/27/2017 The patient was signed out to me. Please refer to the main dictation by Dr. Garcia, the patient is a 51-year-old male with past medical history of developmental delay, gallstone pancreatitis, and pancreatic pseudocyst status post placement of 2 drainage for this cyst/abscess, the patient was brought here because the info specialist was worried that maybe the patient is not at his baseline, the patient is not a good history taking and does not complain of anything, per info specialist and also per Dr. Garcia, the patient is at baseline tachycardic to 110 and blood pressure systolic has always at baseline with 95 to 100, when I saw the patient, he did not look to be in any pain or distress, pulse rate was 102, blood pressure systolic was 105, lab works were all noncontributory and negative, CT of the abdomen and pelvis showed decreased size of the abscess, cyst after the placement of drainage, and also the previous left pleural effusion with very minimal right pleural effusion. Other than that, there are no acute changes. The patient was stable, and exam did not show any discomfort, info specialist who knows the patient chronically at bedside says the patient looks okay and is at his baseline. The patient was discharged to be followed up by the primary care as needed. Ranulfo Lee MD/ letitia JOB #: [id number] CC: Logan Garcia MD, Attending Physician UNKNOWN, Family Physician
== END 2017-03-27 21:15 | disposition home or self-care (01) ==
LOC: ER 16:53
DX: K86.3 Pseudocyst of pancreas (principal); K65.1 Peritoneal abscess; E11.9 Type 2 diabetes mellitus without complications; F31.9 Bipolar disorder, unspecified